=== PATIENT | female | born 1950 | race Caucasian/White ===

== ENCOUNTER 2023-08-15 09:47 | Inpatient (IN) | payer MEDICARE ==
[~2023-08-15] VITALS: Ht 177.8 cm; Wt 63.6 kg
[2023-08-15] MEDS ORDERED: NS 1,000 ML IV SCH ×2 (10:10→15:30)
[2023-08-15 11:15] LABS: Albumin, Blood 3.1 g/dL (3.4-5.0); Albumin/Globulin Ratio 0.7 (0.8-1.8); Bilirubin, Total 0.5 mg/dL (0.1-1.0); Bun/Creatinine Ratio 15.5 (12.0-20.0); Calcium, Blood 9.2 mg/dL (8.5-10.1); Creatinine, Blood 2.2 mg/dL (0.40-1.00); Globulin, Blood 4.5 g/dL (2.2-4.0); Potassium, Blood 3.3 mmol/L (3.5-5.5); Total Protein, Blood 7.6 g/dL (6.4-8.2)
[2023-08-15 13:19] LABS: BASOPHILS ABSOLUTE AUTO 0.05 K/mm3 (0.00-0.23); BASOPHILS PERCENT AUTO 1 % (0-2); EOSINOPHILS ABSOLUTE AUTO 0.11 K/mm3 (0.00-0.68); EOSINOPHILS PERCENT AUTO 1 % (0-6); Hematocrit 33.7 % (33.0-51.0); Hemoglobin 10.7 g/dL (11.5-16.0); IMMATURE GRAN ABSOLUTE AUTO 0.04 K/mm3 (0.00-0.10); IMMATURE GRAN PERCENT AUTO 0 % (0-1); LYMPHOCYTES ABSOLUTE AUTO 2.05 K/mm3 (0.84-5.20); LYMPHOCYTES PERCENT AUTO 22 % (21-46); MONOCYTES PERCENT AUTO 8 % (4-13); Mean Corpuscular HGB 28.2 pg (26.0-34.0); Mean Corpuscular HGB Conc 31.8 g/dL (31.5-36.5); Mean Corpuscular Volume 89 fL (80-100); Mean Platelet Volume 9.3 fL (9.1-12.4); NEUTROPHILS ABSOLUTE AUTO 6.19 K/mm3 (1.96-9.15); NEUTROPHILS PERCENT AUTO 68 % (41-73); Platelet Count 223 K/mm3 (150-400); RDW Standard Deviation 55.6 fL (35.1-46.3); White Blood Cell Count 9.14 K/mm3 (4.00-11.30)
[2023-08-15] MEDS ORDERED: Atropine Sulfate 0.4 MG/ML 20ML VIAL IV ONE (15:25)
[2023-08-15] MEDS ORDERED: Ondansetron HCl 2 MG / ML 2ML Vial IV PRN (15:40)
[2023-08-15] MEDS ORDERED: FLU VACC QS2023-24(6MOS UP)/PF 60 MCG/0.5 ML SYRINGE IM SCH (15:40)
[2023-08-15] MEDS ORDERED: Potassium Chloride 20 MEQ TabCR PO ONE (15:40)
[2023-08-15] MEDS ORDERED: Acetaminophen 325 MG TABLET PO PRN (15:40)
[2023-08-15] MEDS ORDERED: Lactated Ringer's 1,000 ML IV SCH (15:45)
[2023-08-15] MEDS ORDERED: Insulin Regular 100 UNIT/ML 10ML Vial SC SCH (16:30)
[2023-08-15 17:24] LABS: Influenza A, PCR NEGATIVE (NEGATIVE); Influenza B, PCR NEGATIVE (NEGATIVE); Resp Syncytial Virus, PCR NEGATIVE (NEGATIVE); SARS-Cov-2 (COVID-19) PCR, MMC NEGATIVE (NEGATIVE)
[2023-08-15 18:05] LABS: Campylobacter Sp Not Detected (NOT DETECT)
[2023-08-15 18:06] LABS: Adenovirus F 40/41 Not Detected (NOT DETECT); Astrovirus Not Detected (NOT DETECT); Cryptosporidium Not Detected (NOT DETECT); Cyclospora Cayetanensis Not Detected (NOT DETECT); E. Coli O157 Not Detected (NOT DETECT); Entamoeba Histolytica Not Detected (NOT DETECT); Enteroaggregative E. coli-EAEC Not Detected (NOT DETECT); Enteropathogenic E. coli-EPEC Not Detected (NOT DETECT); Enterotoxigenic E. coli-ETEC Not Detected (NOT DETECT); Giardia Lamblia Not Detected (NOT DETECT); Norovirus GI/GII Not Detected (NOT DETECT); Plesiomonas Shigelloides Not Detected (NOT DETECT); Rotavirus A Not Detected (NOT DETECT); Salmonella Sp Not Detected (NOT DETECT); Sapovirus Not Detected (NOT DETECT); Shiga Toxin-prod E. coli-STEC Not Detected (NOT DETECT); Shigella/Enteroin E. coli-EIEC Not Detected (NOT DETECT); Vibrio Cholerae Not Detected (NOT DETECT); Vibrio Sp Not Detected (NOT DETECT); Yersinia Enterocolitica Not Detected (NOT DETECT)
[2023-08-15 18:54] VITALS: BP 105/72
[2023-08-15] MEDS ORDERED: Lactobacil 2-S.Thermo-Bifido 1 1 Cap PO SCH (21:00)
[2023-08-16 04:44] VITALS: BP 112/66
[2023-08-16 06:00] LABS: BASOPHILS ABSOLUTE AUTO 0.04 K/mm3 (0.00-0.23); BASOPHILS PERCENT AUTO 1 % (0-2); EOSINOPHILS ABSOLUTE AUTO 0.23 K/mm3 (0.00-0.68); EOSINOPHILS PERCENT AUTO 3 % (0-6); Hematocrit 30.3 % (33.0-51.0); Hemoglobin 9.7 g/dL (11.5-16.0); IMMATURE GRAN ABSOLUTE AUTO 0.04 K/mm3 (0.00-0.10); IMMATURE GRAN PERCENT AUTO 1 % (0-1); LYMPHOCYTES ABSOLUTE AUTO 1.75 K/mm3 (0.84-5.20); LYMPHOCYTES PERCENT AUTO 23 % (21-46); MONOCYTES ABSOLUTE AUTO 0.76 K/mm3 (0.16-1.47); MONOCYTES PERCENT AUTO 10 % (4-13); Mean Corpuscular HGB 28.2 pg (26.0-34.0); Mean Corpuscular Volume 88 fL (80-100); NEUTROPHILS ABSOLUTE AUTO 4.84 K/mm3 (1.96-9.15); NEUTROPHILS PERCENT AUTO 63 % (41-73); Platelet Count 206 K/mm3 (150-400); RDW Coefficient Variation 16.7 % (11.7-14.2); Red Blood Cell Count 3.44 M/mm3 (3.80-5.20); White Blood Cell Count 7.66 K/mm3 (4.00-11.30)
[2023-08-16 07:07] LABS: Bun/Creatinine Ratio 15.3 (12.0-20.0); Calcium, Blood 8.9 mg/dL (8.5-10.1); Creatinine, Blood 1.83 mg/dL (0.40-1.00); Potassium, Blood 2.9 mmol/L (3.5-5.5)
[2023-08-16 07:22] VITALS: BP 101/64
[2023-08-16] MEDS ORDERED: Potassium Chloride 20 MEQ TabCR PO ONE (08:00)
--- NOTE | 2023-08-16 08:16 | NUR ---
SHIFT SUMMARY PT IS A&OX4, VSS ON RA. DENIES PAIN. PT TOLERATING A REGULAR DIET, POOR APPETITE. PT STATES SHE DOESN'T MONITOR HER BG AT HOME, OR TAKE ANY MEDICATIONS FOR IT. UP INDEPENDENTLY IN ROOM/BR. VOIDING IN BR, OCCASIONALLY INCONTINENT OF STOOL, PULL-UP IN PLACE. BED IN LOWEST POSITION, CALL LIGHT WITHIN REACH. ENTERIC PRECAUTIONS MAINTAINED FOR POSITIVE C-DIFF.
[2023-08-16] MEDS ORDERED: Heparin Sodium,Porcine 5,000 UNIT/0.5 ML SDV SC SCH (09:00)
[2023-08-16] MEDS ORDERED: Vancomycin HCl 125 MG Cap PO SCH (12:00)
[2023-08-16 16:04] VITALS: BP 143/71
--- NOTE | 2023-08-16 19:33 | NUR ---
PT IS A/OX4, PLEASANT AND COOPERATIVE. PT IS UP IND IN HER ROOM. PT DENIED ANY PAIN,SOB, N/V T/O THE DAY. PT APPEARS TO BE BREATHING EASILY AT REST. CALL LIGHT IN REACH REPORT GIVEN TO DIE DRAWING CHECKER RN
[2023-08-16 19:52] VITALS: BP 122/65
[2023-08-17 03:44] VITALS: BP 151/73
--- NOTE | 2023-08-17 05:36 | NUR ---
SHIFT SUMMARY: PT IS ADMITTED FOR ACUTE KIDNEY INJURY AND IS A FULL CODE. IS ALERT AND ABLE TO MAKE NEEDS KNOWN. INDEPENDENT FOR ADLs. ON ISO FOR C-DIFF. IV TO LEFT AC IS PATENT WITH DRESSING THAT IS CDI. LR RUNNING AT 100ML/H. DENIES PAIN OR DISCOMFORT WHEN ASKED.
[2023-08-17 06:02] LABS: BASOPHILS ABSOLUTE AUTO 0.04 K/mm3 (0.00-0.23); BASOPHILS PERCENT AUTO 1 % (0-2); EOSINOPHILS ABSOLUTE AUTO 0.13 K/mm3 (0.00-0.68); EOSINOPHILS PERCENT AUTO 2 % (0-6); Hematocrit 28.6 % (33.0-51.0); Hemoglobin 9.3 g/dL (11.5-16.0); IMMATURE GRAN ABSOLUTE AUTO 0.03 K/mm3 (0.00-0.10); IMMATURE GRAN PERCENT AUTO 1 % (0-1); LYMPHOCYTES ABSOLUTE AUTO 2.06 K/mm3 (0.84-5.20); LYMPHOCYTES PERCENT AUTO 34 % (21-46); MONOCYTES PERCENT AUTO 13 % (4-13); Mean Corpuscular HGB 28.3 pg (26.0-34.0); Mean Corpuscular HGB Conc 32.5 g/dL (31.5-36.5); Mean Corpuscular Volume 87 fL (80-100); Mean Platelet Volume 9.4 fL (9.1-12.4); NEUTROPHILS ABSOLUTE AUTO 3.02 K/mm3 (1.96-9.15); NEUTROPHILS PERCENT AUTO 50 % (41-73); Platelet Count 204 K/mm3 (150-400); RDW Coefficient Variation 16.6 % (11.7-14.2); RDW Standard Deviation 53.1 fL (35.1-46.3); Red Blood Cell Count 3.29 M/mm3 (3.80-5.20); White Blood Cell Count 6.08 K/mm3 (4.00-11.30)
[2023-08-17 06:21] LABS: Bun/Creatinine Ratio 13.9 (12.0-20.0); Calcium, Blood 8.8 mg/dL (8.5-10.1); Creatinine, Blood 1.8 mg/dL (0.40-1.00); Potassium, Blood 3.4 mmol/L (3.5-5.5)
[2023-08-17] MEDS ORDERED: Potassium Chloride 20 MEQ TabCR PO ONE (07:25)
[2023-08-17 07:38] VITALS: BP 133/79
[2023-08-17] MEDS ORDERED: Phenyleph/Mineral Oil/Petrolat 1 APPLIC/57 GM Tube PR PRN (08:00)
[2023-08-17 15:56] VITALS: BP 146/71
--- NOTE | 2023-08-17 16:33 | NUR ---
SHIFT SUMMARY: PT IS A 72 YEAR OLD FEMALE HERE FOR AN HARSHA/C-DIFF. SHE CONTINUES TO HAVE DIARRHEA AND STATES THAT IT HASN'T IMPROVED. SHE HAS BEEN INDEPENDENT IN THE ROOM, CALLING APPROPRIATELY FOR NEEDS. SHE COMPLAINS OF HER BOTTOM BEING SORE FROM THE DIARRHEA AND SOME BLEEDING, BUT WHEN ASSESSED NOT ACTIVELY BLEEDING/SATURATION, JUST SPOTTING IN PULL-UP AND ON TOILET PAPER. SHE IS IN BED, PLAYING ON HER CELL PHONE, NO SIGNS OR SYMPTOMS OF DISTRESS. AWAITING RECORDS THAT WERE REQUESTED FROM [facility] FOR POSSIBLE PRESCRIPTION RECORDS/INDICATIONS. PATIENT STATES THAT SHE USED TO TAKE ELIQUIS, UNSURE FOR WHAT, BUT DUE TO HOMELESSNESS AND EXSPENSE OF MEDICATIONS SHE HASN'T FILLED MEDICATIONS IN MONTHS. [facility]AGO WAS CALLED TODAY AND REPORTED NO MEDICATIONS ON FILE FOR PATIENT. PLAN OF CARE ONGOING.
[2023-08-17 20:37] VITALS: BP 138/71
[2023-08-18 04:06] VITALS: BP 131/72
[2023-08-18 05:39] LABS: Hematocrit 31.1 % (33.0-51.0)
[2023-08-18 06:21] LABS: Calcium, Blood 9.1 mg/dL (8.5-10.1); Creatinine, Blood 1.83 mg/dL (0.40-1.00); Potassium, Blood 3.6 mmol/L (3.5-5.5)
--- NOTE | 2023-08-18 06:41 | NUR ---
SHIFT SUMMARY: PT IS ADMITTED FOR SYNCOPAL EPISODES AND IS A FULL CODE. IS ALERT AND ABLE TO MAKE NEEDS KNOWN. ADLS HAVE BEEN STANDBY DURING SHIFT BUT DID NOT GET OUT OF BED. STATED HIS PAIN WAS MANAGEABLE AND DECLINED ANY PRN DURING SHIFT. IV TO LEFT AC IS PATENT WITH DRESSING THAT IS CDI. ADOLPH REPORTS SINUS AT 83.
--- NOTE | 2023-08-18 06:41 | NUR ---
SHIFT SUMMARY: PT IS ADMITTED FOR ACUTE KIDNEY INJURY AND IS A FULL CODE. ALERT AND ABLE TO MAKE NEEDS KNOWN. ADLs HAVE BEEN INDEPENDANT THROUGH SHIFT. DENIES PAIN OR DISCOMFORT WHEN ASKED. ON ISO FOR C-DIFF. IV TO LEFT AC IS PATENT WITH DRESSING THAT IS CDI.
[2023-08-18 07:35] VITALS: BP 134/76
[2023-08-18] MEDS ORDERED: Vancomycin HCl 250 MG Cap PO SCH (12:00)
[2023-08-18] MEDS ORDERED: Cholecalciferol 1000 Unit Tablet (=25MCG) PO SCH (12:00)
--- NOTE | 2023-08-18 12:27 | NUR ---
TIME OF : PATIENT PASSED WITH BOTH DAUGHTERS AT BEDSIDE AT 1219. 2 RN VERIFIED. MD NOTIFIED. PATIENT APPEARED COMFORTABLE DURING PASSING. FAMILY HAS DECIDED WITH [facility] HOME. FAMILY STILL IN ROOM WITH PATIENT AT THIS TIME AWAITING FOR THEM TO NOTIFY WHEN THEY ARE READY FOR THE PATIENT TO BE PICKED UP FROM HOME. ACCOUNTING PROFESSIONAL COORDINATING AT THIS TIME. CHAPLEN AND PALLATIVE CARE TO COME VISIT WAS REFUSED.
--- NOTE | 2023-08-18 17:11 | NUR ---
SHIFT SUMMARY: NO EVENTS WITH THE PATIENT THROUGHOUT THE SHIFT. SHE REPORTS 3-4 LOOSE BOWEL MOVEMENTS TODAY. SHE ALSO REPORTS THAT SHE FEELS IF SHE IS COMING DOWN WITH A COLD DUE TO NOT FEELING WELL AND HAVING SINUS CONGESTION. MD NOTIFIED DURING ROUNDING. SHE IS PLEASANT AND COOPERATIVE WITH CARE AND INDEPENDENT IN THE ROOM. ORAL INTAKE OF FLUIDS ENCOURAGED AND HOPE THAT PATIENT'S LOOSE STOOLS IMPROVE. PLAN OF CARE ONGOING.
[2023-08-18 17:15] VITALS: BP 141/83
[2023-08-18 20:33] VITALS: BP 144/81
[2023-08-19 03:37] VITALS: BP 145/70
--- NOTE | 2023-08-19 03:58 | NUR ---
SHIFT ASSESSMENT ALEXIS WAS ALERT, FULLY ORIENTED, AND INDEPENDENT IN THE ROOM ON ASSESSMENT. PT COMPLAINING OF C-DIFF ASSOCIATED DIARRHEA AND A HEADACHE. NO CHANGES TO PT CONDITION, NO ACUTE EVENTS TONIGHT. PT SLEEPING IN BED AT A LOW POSITION WITH CALL LIGHT IN REACH.
[2023-08-19 05:48] LABS: Albumin, Blood 2.6 g/dL (3.4-5.0); Anion Gap 3 mmol/L (6-16); Blood Urea Nitrogen 20 mg/dL (8-24); Bun/Creatinine Ratio 10.2 (12.0-20.0); CO2, Blood 25 mmol/L (21-32); Calcium, Blood 9.2 mg/dL (8.5-10.1); Chloride, Blood 110 mmol/L (98-108); Creatinine, Blood 1.97 mg/dL (0.40-1.00); Glomerular Filtration Rate 27 (60-); Glucose, Blood 141 mg/dL (70-99); Phosphorus, Blood 3.8 mg/dL (2.5-4.9); Potassium, Blood 3.8 mmol/L (3.5-5.5); Sodium, Blood 138 mmol/L (136-145)
[2023-08-19 07:36] VITALS: BP 135/71
[2023-08-19] MEDS ORDERED: Saline Nasal Spray 45 ML PRN (09:35)
[2023-08-19] MEDS ORDERED: Pseudoephedrine HCl 30 MG Tab PO PRN (09:35)
[2023-08-19 16:11] VITALS: BP 120/81
--- NOTE | 2023-08-19 16:21 | NUR ---
SHIFT SUMMARY: NO EVENTS OR CHANGES WITH THE PATIENT THROUGHOUT THE SHIFT. SHE DOES CONTINUE TO HAVE LOOSE STOOLS. SHE ISN'T FEELING WELL. OF YESTERDAY SHE STARTED FEELING CONGESTED. THIS MORNING SHE WAS MORE CONGESTED, SOUNDED WORSE, AND HAS A HEADACHE. DR. VALERA NOTIFIED AND MEDS ADDED TO EMAR FOR SYMPTOMS. HER KIDNEY FUNCTION ISN'T IMPROVED AT THIS TIME, CONTINUING TO ENCOURAGE ORAL FLUID INTAKE. SHE IS A&OX4, INDEPENDENT, AND MAKES NEEDS KNOWN. PLAN OF CARE ONGOING.
[2023-08-19 20:32] VITALS: BP 127/74
[2023-08-19] MEDS ORDERED: GuaiFENesin 600 MG TabCR PO SCH (21:00)
[2023-08-19] MEDS ORDERED: Apixaban 5 MG Tab PO SCH (21:00)
--- NOTE | 2023-08-20 04:00 | NUR ---
SHIFT ASSESSMENT ALEXIS WAS ALERT, FULLY ORIENTED, AND INDEPENDENT IN THE ROOM ON ASSESSMENT. PT COMPLAINING OF C-DIFF ASSOCIATED DIARRHEA AND A HEADACHE STILL, PT REPORTS THAT HER STOOLS ARE NO LONGER LIQUID, AND ARE MORE OF A SOFT BLOBBY CONSISTENCY. NO CHANGES TO PT CONDITION, NO ACUTE EVENTS TONIGHT, NO NEW COMPLAINTS. PT SLEEPING IN BED AT A LOW POSITION WITH CALL LIGHT IN REACH.
[2023-08-20 04:20] VITALS: BP 103/62
[2023-08-20 08:00] VITALS: BP 113/72
[2023-08-20] MEDS ORDERED: Phenylephrine 0.5% Nasal Spray/Drops 15 ML PRN (10:00)
[2023-08-20 15:28] VITALS: BP 116/67
--- NOTE | 2023-08-20 15:55 | NUR ---
SHIFT SUMMARY; PATIENT INDEPENDANT IN ROOM. NOTED TO BE SPEAKING WITH FAMILY OR FRIENDS ON PHONE TODAY. MAKING PLANS FOR HER EVENTUAL DISCHARGE. HER VITAL SIGNS ARE STABLE AND PATIENT HAS HAD PARTIALLY FORMED STOOLS NOTED TODAY. SHE DENIES ANY PAIN OR DISCOMFORT. VITAL SIGNS ARE WNL. NO ACUTE CHANGES IN CONDITION NOTED DURING DAY SHIFT BY THIS RN. WILL REMAIN AVAILABLE FOR THIS PATIENT UNTIL REPORT AND SHIFT CHANGE AT [facility]
[2023-08-20 19:37] VITALS: BP 110/61
[2023-08-21 03:52] VITALS: BP 114/74
--- NOTE | 2023-08-21 04:18 | NUR ---
SHIFT ASSESSMENT ALEXIS WAS ALERT, FULLY ORIENTED, AND INDEPENDENT IN THE ROOM ON ASSESSMENT. PT REPORTS THAT HER STOOLS ARE NO LONGER LIQUID, AND CONTINUE TO BECOME MORE FORMED NO CHANGES TO PT CONDITION, NO ACUTE EVENTS TONIGHT, NO NEW COMPLAINTS. PT SLEEPING IN BED AT A LOW POSITION WITH CALL LIGHT IN REACH. PLAN TO DX BACK TO [facility] W/ RESOLUTION OF DIARRHEA.
[2023-08-21 06:38] LABS: Hematocrit 34.6 % (33.0-51.0); Hemoglobin 11.1 g/dL (11.5-16.0); Mean Corpuscular HGB 28.2 pg (26.0-34.0); Mean Corpuscular HGB Conc 32.1 g/dL (31.5-36.5); Mean Corpuscular Volume 88 fL (80-100); Mean Platelet Volume 8.8 fL (9.1-12.4); Platelet Count 224 K/mm3 (150-400); RDW Standard Deviation 54.5 fL (35.1-46.3); Red Blood Cell Count 3.94 M/mm3 (3.80-5.20); White Blood Cell Count 7.85 K/mm3 (4.00-11.30)
[2023-08-21 07:02] LABS: Albumin, Blood 2.9 g/dL (3.4-5.0); Anion Gap 4 mmol/L (6-16); Blood Urea Nitrogen 28 mg/dL (8-24); Bun/Creatinine Ratio 14.5 (12.0-20.0); CO2, Blood 25 mmol/L (21-32); Calcium, Blood 9.6 mg/dL (8.5-10.1); Chloride, Blood 110 mmol/L (98-108); Creatinine, Blood 1.93 mg/dL (0.40-1.00); Glomerular Filtration Rate 27 (60-); Glucose, Blood 142 mg/dL (70-99); Phosphorus, Blood 4.2 mg/dL (2.5-4.9); Potassium, Blood 4.3 mmol/L (3.5-5.5); Sodium, Blood 139 mmol/L (136-145)
[2023-08-21 08:10] VITALS: BP 147/75
[2023-08-21 16:22] VITALS: BP 120/76
--- NOTE | 2023-08-21 17:20 | NUR ---
SHIFT SUMMARY A&OX4, COOPERATIVE, INDEPENDENT IN ROOM. NO ACUTE EVENTS THIS SHIFT. PATIENT HAD 2 BOWEL MOVEMENTS - BOTH WERE SOLID AND FORMED. DENIED PAIN/CP THIS SHIFT. DENIED HEADACHE, SOB, OR DIZZINESS. APPETITE AND HYDRATION GOOD. CBG LEVELS WNL T/O SHIFT. PATIENT IS CURRENTLY RESTING IN BED. BED IN THE LOWEST POSITION. CALL LIGHT WITHIN REACH.
[2023-08-21 21:15] VITALS: BP 114/77
--- NOTE | 2023-08-22 04:02 | NUR ---
SHIFT SUMMARY PATIENT SLEPT WELL, VITALS SIGNS STABLE, UP TO BR INDEPENDENTLY. REPORTS 1 SOFT FORMED BM THIS SHIFT. REMAINS IN C DIF PRECAUTIONS. SL PATENT
[2023-08-22 05:52] VITALS: BP 125/72
[2023-08-22 07:55] VITALS: BP 131/75
[2023-08-22 16:48] VITALS: BP 128/67
[2023-08-22 19:32] VITALS: BP 111/65
--- NOTE | 2023-08-22 19:41 | NUR ---
SHIFT SUMMARY: PT A/O X 4 IND TO BATHROOM, PLEASANT AND COOPERATIVE WITH CARE. PT HAD ONE VISUALIZED FORMED MED, SOFT BROWN STOOL TODAY. PT HAD NO COMPLAINTS OF GI UPSET. EATING WELL. PT HAD C/O OF HEADACHE AND RESOLVED WITH TYLENOL. NO OTHER CONCERNS OR COMPLAINTS THROUGHOUT THE DAY.
[2023-08-23 05:14] VITALS: BP 122/73
--- NOTE | 2023-08-23 06:38 | NUR ---
SHIFT SUMMARY PT REPORTS NO BM OVER NIGHT. INDEPENDENT AMBULATION TO BATHROOM TO URINATE X3. REPORTS HEADACHE AND NECK PAIN, TYLENOL GIVEN WITH LITTLE TO NO RELIEF. PT ABLE TO MAKE NEEDS KNOWN. OTHERWISE NO EVENTS OVERNIGHT. CALL LIGHT IN REACH. BED LOCKED IN LOW POSITION. PT REFUSED NONSKID SOCKS.
[2023-08-23 07:31] VITALS: BP 115/72
[2023-08-23] MEDS ORDERED: VANCOCIN HCL250 MG PO (12:47)
[2023-08-23] MEDS ORDERED: ELIQUIS2.5 MG PO (12:47)
[2023-08-23] MEDS ORDERED: VISBIOME 112.51 EACH PO (12:48)
--- NOTE | 2023-08-23 13:57 | NUR ---
DISCHARGE NOTE: PATIENT WAS EDUCATED ON DISCHARGE INSTRUCTIONS. AFTER EDUCATION WAS GIVEN PATIENT HAD NO FURTHER QUESTIONS AT THIS TIME. IV WAS TAKEN OUT AND WNL. PATIENTS NEW PERSCRIPTIONS WERE FAXED TO [facility] PER PATIENT REQUEST. PATIENT IS TOLERATING PO INTAKE AND IS VOIDING WELL HAVING FORMED BM'S. PATIENT IS INDEP. IN HER ROOM. SHE IS DRESSED AND HAS PERSONAL ITEMS IN THE ROOM GATHERED. PATIENT IS BEING WHEELCHAIRED DOWN TO THE WAITING AREA TO BE TAKEN BY TAXI TO HER HOME. PATIENT HAS ALL OF HER PERSONAL BELONGINGS WITH HER.
== END 2023-08-23 14:01 | disposition home or self-care (01) | DRG 372 ==
LOC: ER 09:47 → MEDS 09:48 → ENPENDDIS 08-23 11:56 → MEDS 08-23 14:01
PROVIDERS: Emergency Medicine; Internal Medicine; Physician Assistant; ADMIT Family Medicine
DX: A04.72 Enterocolitis due to Clostridium difficile, not specified as recurrent (principal); N17.9 Acute kidney failure, unspecified; N18.4 Chronic kidney disease, stage 4 (severe); Z59.01 Sheltered homelessness; E11.22 Type 2 diabetes mellitus with diabetic chronic kidney disease; Z90.710 Acquired absence of both cervix and uterus; D63.1 Anemia in chronic kidney disease; E87.6 Hypokalemia; Z11.52 Encounter for screening for COVID-19
CPT/HCPCS: 0241U; 36415; 76770; 80048; 80053; 80069; 82947; 85014; 85018; 85025; 85027; 87324; 87507; 96361; 96372; 96374; 99284-25; A9270; G0378; J1644; J1815; J7030; J7120

== ENCOUNTER 2023-10-26 18:06 | Emergency (ER) | payer MEDICARE ==
[~2023-10-26] VITALS: Ht 165.1 cm; Wt 72.6 kg
[~2023-10-26 18:06] MED LIST: ELIQUIS2.5 MG PO; VANCOCIN HCL250 MG PO; VISBIOME 112.51 EACH PO
== END 2023-10-26 20:41 | disposition home or self-care (01) ==
LOC: ER 18:06
DX: R22.42 Localized swelling, mass and lump, left lower limb (principal); Z79.899 Other long term (current) drug therapy; E11.9 Type 2 diabetes mellitus without complications
CPT/HCPCS: 93971; 99283-25

== ENCOUNTER 2024-02-13 19:54 | Emergency (ER) | payer MEDICARE ==
[~2024-02-13] VITALS: Ht 177.8 cm; Wt 72.6 kg
[~2024-02-13 19:54] MED LIST changes: +TRAM50 PO
[2024-02-13] MEDS ORDERED: Acetaminophen 325 MG TABLET PO ONE (20:40)
[2024-02-13 21:02] LABS: BASOPHILS ABSOLUTE AUTO 0.02 K/mm3 (0.00-0.23); BASOPHILS PERCENT AUTO 0 % (0-2); EOSINOPHILS ABSOLUTE AUTO 0.05 K/mm3 (0.00-0.68); EOSINOPHILS PERCENT AUTO 1 % (0-6); Hematocrit 39.5 % (33.0-51.0); Hemoglobin 12.8 g/dL (11.5-16.0); IMMATURE GRAN ABSOLUTE AUTO 0.03 K/mm3 (0.00-0.10); IMMATURE GRAN PERCENT AUTO 0 % (0-1); LYMPHOCYTES ABSOLUTE AUTO 0.44 K/mm3 (0.84-5.20); LYMPHOCYTES PERCENT AUTO 4 % (21-46); MONOCYTES ABSOLUTE AUTO 0.53 K/mm3 (0.16-1.47); MONOCYTES PERCENT AUTO 5 % (4-13); Mean Corpuscular HGB 28.4 pg (26.0-34.0); Mean Corpuscular HGB Conc 32.4 g/dL (31.5-36.5); Mean Corpuscular Volume 88 fL (80-100); Mean Platelet Volume 9.2 fL (9.1-12.4); NEUTROPHILS ABSOLUTE AUTO 9.07 K/mm3 (1.96-9.15); NEUTROPHILS PERCENT AUTO 90 % (41-73); Platelet Count 186 K/mm3 (150-400); RDW Coefficient Variation 13.9 % (11.7-14.2); RDW Standard Deviation 44.7 fL (35.1-46.3); Red Blood Cell Count 4.51 M/mm3 (3.80-5.20); White Blood Cell Count 10.14 K/mm3 (4.00-11.30)
[2024-02-13 21:23] LABS: Albumin, Blood 3.6 g/dL (3.4-5.0); Albumin/Globulin Ratio 0.9 (0.8-1.8); Bilirubin, Total 0.4 mg/dL (0.1-1.0); Bun/Creatinine Ratio 29.5 (12.0-20.0); Calcium, Blood 8.7 mg/dL (8.5-10.1); Creatinine, Blood 1.9 mg/dL (0.40-1.00); Globulin, Blood 4.2 g/dL (2.2-4.0); Potassium, Blood 4.2 mmol/L (3.5-5.5); Total Protein, Blood 7.8 g/dL (6.4-8.2)
[2024-02-13 21:40] LABS: Influenza A, PCR NEGATIVE (NEGATIVE); Influenza B, PCR NEGATIVE (NEGATIVE); Resp Syncytial Virus, PCR NEGATIVE (NEGATIVE); SARS-Cov-2 (COVID-19) PCR, MMC NEGATIVE (NEGATIVE)
[2024-02-13] MEDS ORDERED: RX Prepack 2 Tabs Ondansetron ODT 4MG UD ONE (23:05)
== END 2024-02-13 23:37 | disposition home or self-care (01) ==
LOC: ER 19:54
PROVIDERS: Student in an Organized Health Care Education/Training Program
DX: R50.9 Fever, unspecified (principal); E11.22 Type 2 diabetes mellitus with diabetic chronic kidney disease; N18.4 Chronic kidney disease, stage 4 (severe)
CPT/HCPCS: 0241U; 80053; 85025; 99284-25; A9270

== ENCOUNTER 2024-10-13 11:50 | Emergency (ER) | payer MEDICARE ==
[~2024-10-13] VITALS: Ht 167.6 cm; Wt 72.6 kg
[2024-10-13] MEDS ORDERED: MUPIROCIN2210 TOP (12:23)
== END 2024-10-13 13:33 | disposition home or self-care (01) ==
LOC: ER 11:50
DX: R11.2 Nausea with vomiting, unspecified (principal); T36.4X5A Adverse effect of tetracyclines, initial encounter; T36.1X5A Adverse effect of cephalosporins and other beta-lactam antibiotics, initial encounter; E11.9 Type 2 diabetes mellitus without complications; Z59.89 Other problems related to housing and economic circumstances
CPT/HCPCS: 99283

== ENCOUNTER 2024-10-16 20:17 | Emergency (ER) | payer MEDICARE ==
[~2024-10-16] VITALS: Ht 177.8 cm; Wt 72.6 kg
[~2024-10-16 20:17] MED LIST changes: +MUPIROCIN2210 TOP
[2024-10-16] MEDS ORDERED: NS 1,000 ML IV SCH (20:45)
[2024-10-16 21:13] LABS: BASOPHILS ABSOLUTE AUTO 0.03 K/mm3 (0.00-0.23); BASOPHILS PERCENT AUTO 0 % (0-2); EOSINOPHILS ABSOLUTE AUTO 0.12 K/mm3 (0.00-0.68); EOSINOPHILS PERCENT AUTO 1 % (0-6); Hematocrit 36.5 % (33.0-51.0); Hemoglobin 12.3 g/dL (11.5-16.0); IMMATURE GRAN ABSOLUTE AUTO 0.04 K/mm3 (0.00-0.10); IMMATURE GRAN PERCENT AUTO 0 % (0-1); LYMPHOCYTES ABSOLUTE AUTO 3.13 K/mm3 (0.84-5.20); LYMPHOCYTES PERCENT AUTO 23 % (21-46); MONOCYTES ABSOLUTE AUTO 0.92 K/mm3 (0.16-1.47); MONOCYTES PERCENT AUTO 7 % (4-13); Mean Corpuscular HGB 29.1 pg (26.0-34.0); Mean Corpuscular HGB Conc 33.7 g/dL (31.5-36.5); Mean Corpuscular Volume 86 fL (80-100); NEUTROPHILS ABSOLUTE AUTO 9.13 K/mm3 (1.96-9.15); NEUTROPHILS PERCENT AUTO 68 % (41-73); Platelet Count 274 K/mm3 (150-400); RDW Coefficient Variation 13.3 % (11.7-14.2); Red Blood Cell Count 4.23 M/mm3 (3.80-5.20); White Blood Cell Count 13.37 K/mm3 (4.00-11.30)
[2024-10-16 21:28] LABS: International Normalized Ratio 0.95; Prothrombin Time Results 10.2 Sec (9.7-11.5)
[2024-10-16 21:36] LABS: Albumin, Blood 3.4 g/dL (3.4-5.0); Albumin/Globulin Ratio 0.8 (0.8-1.8); Bilirubin, Total 0.3 mg/dL (0.1-1.0); Bun/Creatinine Ratio 22.1 (12.0-20.0); Calcium, Blood 9.2 mg/dL (8.5-10.1); Creatinine, Blood 3.08 mg/dL (0.40-1.00); Globulin, Blood 4.2 g/dL (2.2-4.0); Potassium, Blood 4.3 mmol/L (3.5-5.5); Total Protein, Blood 7.6 g/dL (6.4-8.2)
[2024-10-17] MEDS ORDERED: Mag Hydrox/AL Hydrox/Simeth 30 ML UDC PO ONE (00:45)
[2024-10-17] MEDS ORDERED: Lidocaine 2% Viscous Soln 15 ML UDC PO ONE (00:45)
[2024-10-17] MEDS ORDERED: Ondansetron 4 MG TAB PO ONE (00:45)
[2024-10-17] MEDS ORDERED: ONDA4 PO (04:40)
== END 2024-10-17 04:24 | disposition home or self-care (01) ==
LOC: ER 20:17
PROVIDERS: Student in an Organized Health Care Education/Training Program
DX: R10.9 Unspecified abdominal pain (principal); R11.2 Nausea with vomiting, unspecified; E11.22 Type 2 diabetes mellitus with diabetic chronic kidney disease; N18.4 Chronic kidney disease, stage 4 (severe)
CPT/HCPCS: 74176; 80053; 83690; 85025; 85610; 85730; 99284-25; A9270; J7030

== ENCOUNTER 2024-10-19 11:27 | Emergency (ER) | payer MEDICARE ==
[~2024-10-19] VITALS: Ht 177.8 cm; Wt 63.5 kg
[~2024-10-19 11:27] MED LIST changes: +ONDA4 PO
[2024-10-19] MEDS ORDERED: Famotidine 10 MG/ML 2ML Vial IV ONE (12:00)
[2024-10-19] MEDS ORDERED: Mag Hydrox/AL Hydrox/Simeth 30 ML UDC PO ONE (12:00)
[2024-10-19] MEDS ORDERED: NS 1,000 ML IV SCH (12:05)
[2024-10-19 12:07] LABS: BASOPHILS ABSOLUTE AUTO 0.03 K/mm3 (0.00-0.23); BASOPHILS PERCENT AUTO 0 % (0-2); EOSINOPHILS PERCENT AUTO 2 % (0-6); Hematocrit 34.6 % (33.0-51.0); Hemoglobin 11.7 g/dL (11.5-16.0); IMMATURE GRAN ABSOLUTE AUTO 0.06 K/mm3 (0.00-0.10); IMMATURE GRAN PERCENT AUTO 1 % (0-1); LYMPHOCYTES ABSOLUTE AUTO 2.23 K/mm3 (0.84-5.20); LYMPHOCYTES PERCENT AUTO 18 % (21-46); MONOCYTES ABSOLUTE AUTO 0.64 K/mm3 (0.16-1.47); MONOCYTES PERCENT AUTO 5 % (4-13); Mean Corpuscular HGB 29.9 pg (26.0-34.0); Mean Corpuscular HGB Conc 33.8 g/dL (31.5-36.5); Mean Corpuscular Volume 89 fL (80-100); Mean Platelet Volume 9.1 fL (9.1-12.4); NEUTROPHILS ABSOLUTE AUTO 9.52 K/mm3 (1.96-9.15); NEUTROPHILS PERCENT AUTO 75 % (41-73); Platelet Count 241 K/mm3 (150-400); RDW Coefficient Variation 13.3 % (11.7-14.2); RDW Standard Deviation 43.1 fL (35.1-46.3); Red Blood Cell Count 3.91 M/mm3 (3.80-5.20); White Blood Cell Count 12.68 K/mm3 (4.00-11.30)
[2024-10-19 12:19] LABS: Albumin/Globulin Ratio 0.8 (0.8-1.8); Bilirubin, Total 0.4 mg/dL (0.1-1.0); Calcium, Blood 8.7 mg/dL (8.5-10.1); Creatinine, Blood 2.65 mg/dL (0.40-1.00); Globulin, Blood 3.8 g/dL (2.2-4.0); Potassium, Blood 4.1 mmol/L (3.5-5.5); Total Protein, Blood 6.8 g/dL (6.4-8.2)
[2024-10-19] MEDS ORDERED: FAMO20 PO (15:42)
[2024-10-19] MEDS ORDERED: ONDA4ODT MM (15:53)
== END 2024-10-19 16:55 | disposition home or self-care (01) ==
LOC: ER 11:27
PROVIDERS: Student in an Organized Health Care Education/Training Program
DX: K29.70 Gastritis, unspecified, without bleeding (principal); E11.22 Type 2 diabetes mellitus with diabetic chronic kidney disease; E11.65 Type 2 diabetes mellitus with hyperglycemia; N18.4 Chronic kidney disease, stage 4 (severe); E86.0 Dehydration
CPT/HCPCS: 71046; 76705; 80053; 83690; 83735; 84484; 85025; 93005; 93010; 96374; 99285-25; A9270; J7030

== ENCOUNTER 2024-11-12 21:39 | Inpatient (IN) | payer MEDICARE ==
[~2024-11-12] VITALS: Ht 180.3 cm; Wt 68.7 kg
[~2024-11-12 21:39] MED LIST changes: +FAMO20 PO; +ONDA4ODT MM
[2024-11-12] MEDS ORDERED: Diphth,Pertuss(Acell),Tet Vac 0.5 ML VIAL IM ONE (22:25)
[2024-11-12] MEDS ORDERED: Trimethoprim/Sulfamethoxazole DS Tab PO ONE (22:25)
[2024-11-12] MEDS ORDERED: Cephalexin Monohydrate 500 MG Cap PO ONE (22:25)
[2024-11-12 23:08] LABS: BASOPHILS ABSOLUTE AUTO 0.04 K/mm3 (0.00-0.23); BASOPHILS PERCENT AUTO 0 % (0-2); EOSINOPHILS ABSOLUTE AUTO 0.05 K/mm3 (0.00-0.68); EOSINOPHILS PERCENT AUTO 0 % (0-6); Hematocrit 26.2 % (33.0-51.0); Hemoglobin 8.6 g/dL (11.5-16.0); IMMATURE GRAN ABSOLUTE AUTO 0.07 K/mm3 (0.00-0.10); IMMATURE GRAN PERCENT AUTO 1 % (0-1); LYMPHOCYTES ABSOLUTE AUTO 2.75 K/mm3 (0.84-5.20); LYMPHOCYTES PERCENT AUTO 19 % (21-46); MONOCYTES PERCENT AUTO 9 % (4-13); Mean Corpuscular HGB Conc 32.8 g/dL (31.5-36.5); Mean Corpuscular Volume 88 fL (80-100); NEUTROPHILS ABSOLUTE AUTO 10.48 K/mm3 (1.96-9.15); NEUTROPHILS PERCENT AUTO 71 % (41-73); Platelet Count 167 K/mm3 (150-400); RDW Coefficient Variation 13.6 % (11.7-14.2); RDW Standard Deviation 43.9 fL (35.1-46.3); Red Blood Cell Count 2.97 M/mm3 (3.80-5.20); White Blood Cell Count 14.69 K/mm3 (4.00-11.30)
[2024-11-12 23:27] LABS: Base Excess Venous -3.5 mmol/L; Bicarbonate Venous 21.8 mmol/L (24.0-30.0); pH Blood Venous 7.36 (7.34-7.37)
[2024-11-12 23:36] LABS: Albumin, Blood 2.4 g/dL (3.4-5.0); Albumin/Globulin Ratio 0.6 (0.8-1.8); Beta-hydroxybutyrate 0.7 mg/dL (0.2-2.8); Bilirubin, Total 0.3 mg/dL (0.1-1.0); Bun/Creatinine Ratio 15.1 (12.0-20.0); Calcium, Blood 8.6 mg/dL (8.5-10.1); Creatinine, Blood 2.91 mg/dL (0.40-1.00); Potassium, Blood 4.3 mmol/L (3.5-5.5); Total Protein, Blood 6.4 g/dL (6.4-8.2)
[2024-11-13 00:25] LABS: Bilirubin, Urine Neg (Neg); Blood, Urine 2+ (Neg); Glucose Qualitative, Urine 3+ (Neg); Ketones, Urine Neg (Neg); Leukocyte Esterase, Urine 3+ (Neg); Nitrite, Urine Neg (Neg); Protein, Urine 2+ (Neg); Source, Urine Clean Catch; Urobilinogen, Urine NORM (Normal)
[2024-11-13] MEDS ORDERED: NS 1,000 ML IV SCH ×3 (00:40→10:00)
[2024-11-13 00:45] LABS: Appearance, Urine Hazy (Clear); Color, Urine Yellow (P-Yellow); Red Blood Cells, Urine 0-2 /hpf (0-2); White Blood Cells, Urine 50-100 /hpf (0-5)
[2024-11-13 00:46] LABS: Bacteria Few /hpf; Squamous Epithelial Cells Few /hpf (Few)
[2024-11-13 03:03] VITALS: BP 131/60
[2024-11-13] MEDS ORDERED: ASPIR 8181 M1 PO (04:21)
[2024-11-13] MEDS ORDERED: Vancomycin HCL 1,500 MG in NS 250 ML IV ONE (05:30)
[2024-11-13] MEDS ORDERED: Piperacillin/Tazobactam Sod 2.25 GM in NS 50 ML IV SCH ×2 (06:00→12:00)
[2024-11-13 06:09] LABS: BASOPHILS ABSOLUTE AUTO 0.03 K/mm3 (0.00-0.23); BASOPHILS PERCENT AUTO 0 % (0-2); EOSINOPHILS PERCENT AUTO 1 % (0-6); Hematocrit 24.8 % (33.0-51.0); Hemoglobin 8.3 g/dL (11.5-16.0); IMMATURE GRAN ABSOLUTE AUTO 0.05 K/mm3 (0.00-0.10); IMMATURE GRAN PERCENT AUTO 0 % (0-1); LYMPHOCYTES ABSOLUTE AUTO 2.01 K/mm3 (0.84-5.20); LYMPHOCYTES PERCENT AUTO 18 % (21-46); MONOCYTES ABSOLUTE AUTO 1.05 K/mm3 (0.16-1.47); MONOCYTES PERCENT AUTO 9 % (4-13); Mean Corpuscular HGB 29.6 pg (26.0-34.0); Mean Corpuscular HGB Conc 33.5 g/dL (31.5-36.5); Mean Corpuscular Volume 89 fL (80-100); Mean Platelet Volume 9.1 fL (9.1-12.4); NEUTROPHILS ABSOLUTE AUTO 8.03 K/mm3 (1.96-9.15); NEUTROPHILS PERCENT AUTO 71 % (41-73); Platelet Count 160 K/mm3 (150-400); RDW Coefficient Variation 13.5 % (11.7-14.2); White Blood Cell Count 11.27 K/mm3 (4.00-11.30)
[2024-11-13 06:20] LABS: Albumin, Blood 2.2 g/dL (3.4-5.0); Albumin/Globulin Ratio 0.6 (0.8-1.8); Bilirubin, Total 0.3 mg/dL (0.1-1.0); Bun/Creatinine Ratio 14.8 (12.0-20.0); Calcium, Blood 8.1 mg/dL (8.5-10.1); Creatinine, Blood 2.71 mg/dL (0.40-1.00); Globulin, Blood 3.6 g/dL (2.2-4.0); Potassium, Blood 3.5 mmol/L (3.5-5.5); Total Protein, Blood 5.8 g/dL (6.4-8.2)
--- NOTE | 2024-11-13 06:57 | NUR ---
ADMIT NOTE/SHIFT SUMMARY REPORT WAS RECEIVED AT 0250 AND PT WAS BROUGHT DOWN TO ROOM 348 ON THE GURNEY.PT WAS ORIENTED TO ROOM AND STAFF. MD CAME IN TO SEE THE PT. ALL ORDERS WERE PUT IN. FLUIDS WERE STARTED FULL BODY ASSESSMENT WAS DONE AND PICTURES WERE TAKEN OF WOUNDS. SHES ALERT ORIENTED X 4 ABLE TO VERBALIZE NEEDS GETS UP TO COMMODE WITH 1 PERSON ASSIST. NO C/O PAIN TO FEET. SHE HAS A STAGE 3 TO HER LT MEDIALFOOT, HER LT BIG ENTIRE TOE IS PURPLE WITH RED STREAKS GOING UP HER LEFT LEG. I MARKED HER LEG WHERE THE REDNESS IS. SHE WAS PUT ON ISOLATION R/T HX OF CDIFF PENDING A STOOL SAMPLE. FAXED OVER TO DR. GIRON OFFICE TO INFORM THEM OF PODIATRY CONSULT. SHES RESTING IN BED AT THIS TIME WITH CALL LIGHT IN REACH
[2024-11-13] MEDS ORDERED: Insulin Regular 100 UNIT/ML 10ML Vial SC SCH (07:30)
[2024-11-13 07:38] VITALS: BP 106/53
[2024-11-13] MEDS ORDERED: LISI5 PO (14:56)
[2024-11-13] MEDS ORDERED: ROSUVASTATIN CA20 MG PO (15:04)
[2024-11-13 15:49] VITALS: BP 114/70
--- NOTE | 2024-11-13 17:36 | NUR ---
SHIFT SUMMARY PATIENT A/OX4, ABLE TO MAKE NEEDS KNOWN. PLEASANT AND COOPERATIVE WITH CARE. WOUND CARE PROVIDED PER ORDER TO LEFT FOOT AND GREAT TOE. NORMAL SALINE RUNNING PER MAR, DECREASED FROM 150ML/HR TO 100ML/HR. DIET CHANGED FROM NPO TO CONSISTENT CARB, PATIENT TOLERATING WELL. WOUND CULTURE OBTAINED THIS MORNING. PATIENT REMAINS ON CONTACT ISOLATION DUE TO HX OF CDIFF UNTIL BOWEL SAMPLE RECEIVED. PATIENT WITHOUT BOWEL MOVEMENT THIS SHIFT. DR. GIRON HAS BEEN CONSULTED. PATIENT PARTICIPATED IN OCCUPATIONAL THERAPY THIS SHIFT. NO OTHER CONCERNS AT THIS TIME.
--- NOTE | 2024-11-13 18:19 | NUR ---
MD CONTACT PATIENT COMPLAINING OF INDEGESTION, NOTIFIED AND NEW ORDER RECIEVED FOR TUMS 500MG Q4H PRN. ADMINISTERED PER AUG.
[2024-11-13] MEDS ORDERED: Calcium Carbonate 500 MG Tab Chew PO PRN (18:20)
[2024-11-13 19:37] VITALS: BP 138/59
[2024-11-13] MEDS ORDERED: Insulin Glargine-Yfgn 100 Unit/mL 3 ML SYR SC SCH (21:00)
[2024-11-13] MEDS ORDERED: Heparin Sodium,Porcine 5,000 UNIT/0.5 ML SDV SC SCH (21:00)
[2024-11-13] MEDS ORDERED: Lactobacil 2-S.Thermo-Bifido 1 1 Cap PO SCH (21:00)
[2024-11-14 04:06] VITALS: BP 118/60
--- NOTE | 2024-11-14 04:10 | NUR ---
SHIFT SUMMARY PT ALERT ORIENTED X 4 ABLE TO VERBALIZE NEEDS CALLS APPROPRIATELY BUT SHE IS REMINDED TO CALL FOR ASSIST TO GET UP TO THE BATHROOM DUE TO HER IV TUBING AND GETTING UP TO THE COMMODE. SHE DID HAVE ONE EPISODES OF INCONTINENCE LAST NIGHT. SHE HAD ONE LOOSE STOOL BUT SHE GOT URINE IN WITH IT SO UNABLE TO OBTAIN STOOL SAMPLE. REMAINS ON VANCO AND ZOSYN ORDERED FOR SEVERE SEPSIS DUE TO LT DIABETIC FOOT ULCERATION AND INFECTION FS DONE AC AND HS WAS 175. REMAINS ON NS AT 100. C/O INDIGESTION MEDICATED WITH TUMS. DRESSING IS INTACT TO HER LT FOOT WOUNDS WITH SOME DRAINAGE TO AREA. RESTING IN BED AT THIS TIME WITH CALL LIGHT IN REACH
[2024-11-14 05:31] LABS: BASOPHILS ABSOLUTE AUTO 0.03 K/mm3 (0.00-0.23); BASOPHILS PERCENT AUTO 0 % (0-2); EOSINOPHILS ABSOLUTE AUTO 0.18 K/mm3 (0.00-0.68); EOSINOPHILS PERCENT AUTO 2 % (0-6); Hematocrit 23.7 % (33.0-51.0); Hemoglobin 7.8 g/dL (11.5-16.0); IMMATURE GRAN ABSOLUTE AUTO 0.06 K/mm3 (0.00-0.10); IMMATURE GRAN PERCENT AUTO 1 % (0-1); LYMPHOCYTES ABSOLUTE AUTO 2.04 K/mm3 (0.84-5.20); LYMPHOCYTES PERCENT AUTO 19 % (21-46); MONOCYTES ABSOLUTE AUTO 0.94 K/mm3 (0.16-1.47); MONOCYTES PERCENT AUTO 9 % (4-13); Mean Corpuscular HGB 29.3 pg (26.0-34.0); Mean Corpuscular HGB Conc 32.9 g/dL (31.5-36.5); Mean Corpuscular Volume 89 fL (80-100); NEUTROPHILS ABSOLUTE AUTO 7.44 K/mm3 (1.96-9.15); NEUTROPHILS PERCENT AUTO 70 % (41-73); Platelet Count 166 K/mm3 (150-400); RDW Coefficient Variation 13.6 % (11.7-14.2); RDW Standard Deviation 44.5 fL (35.1-46.3); Red Blood Cell Count 2.66 M/mm3 (3.80-5.20); White Blood Cell Count 10.69 K/mm3 (4.00-11.30)
[2024-11-14 05:54] LABS: Anion Gap 12 mmol/L (3-11); Blood Urea Nitrogen 35 mg/dL (8-24); Bun/Creatinine Ratio 12.5 (12.0-20.0); CO2, Blood 21 mmol/L (21-32); Calcium, Blood 8.1 mg/dL (8.5-10.1); Chloride, Blood 107 mmol/L (98-108); Creatinine, Blood 2.81 mg/dL (0.40-1.00); Glomerular Filtration Rate 17 (60-); Glucose, Blood 116 mg/dL (70-99); Potassium, Blood 3.7 mmol/L (3.5-5.5); Sodium, Blood 136 mmol/L (136-145); Vancomycin, Random 17.2 ug/mL
[2024-11-14 07:32] VITALS: BP 131/61
[2024-11-14] MEDS ORDERED: Acetaminophen 325 MG TABLET PO PRN (08:05)
[2024-11-14] MEDS ORDERED: Vancomycin HCL 750 MG in NS 250 ML IV ONE (09:00)
[2024-11-14] MEDS ORDERED: TraMADol HCl 50 MG Tab PO SCH (10:15)
[2024-11-14] MEDS ORDERED: TraMADol HCl 50 MG Tab PO PRN (10:54)
[2024-11-14] MEDS ORDERED: Piperacillin/Tazobactam Sod 2.25 GM in NS 50 ML IV SCH (12:00)
[2024-11-14] MEDS ORDERED: Calcium Carbonate 500 MG Tab Chew PO PRN (12:25)
[2024-11-14 15:12] LABS: C DIFFICILE DNA NEGATIVE (Negative)
[2024-11-14] MEDS ORDERED: NS 1,000 ML IV SCH (15:35)
[2024-11-14 16:02] VITALS: BP 122/77
--- NOTE | 2024-11-14 18:10 | NUR ---
SHIFT SUMMARY PATIENT A/OX4. ABLE TO MAKE NEEDS KNOWN. COOPERATIVE WITH CARE, BUT PATIENT TEARFUYL INTERMITTENTLY THROUGHOUT THE SHIFT. PATIENT COMPLAINING OF GENERALIZED PAIN, MD NOTIFIE AND NEW ORDER FOR TRAMADOL RECIEVED AND ADMINISTERED. STOOL SAMPLE OBTAINED THIS MORNING FOR RULE OUT C DIFF, SPECIMEN NEGATIVE AND ISOLATION DISCONTINUED PER PROTOCOL. CRITICAL RESULTS CALLED IN THIS MORNING AT 0700 FOR POSITIVE BLOOD CULTURES WITH GRAM + COCCI AND CLUSTERS, BOTH DR. WADE AND DR. BROWN NOTIFIED. PATIENT FEBRILE THIS AM, MD NOTIFIED AND TYLENOL ORDER RECIEVED AND ADMINISTERED. EFFECTIVE IN LOWERING TEMPERATURE. IV TO RFA PAINFUL AND LEAKING, REMOVED AND NEW IV PLACED TO R WRIST. WOUND CARE PROVIDED PER ORDER TO LEFT FOOT AND GREAT TOE. VASCULAR STUDY COMPLETED THIS AFTERNOON. NO OTHER CONCERNS AT THIS TIME.
[2024-11-14 19:53] VITALS: BP 133/61
[2024-11-15 02:55] VITALS: BP 120/67
--- NOTE | 2024-11-15 05:09 | NUR ---
SHIFT SUMMARY NO ACUTE EVENTS DURING THIS SHIFT. PT IS A/O X4, PLEASANT AND COOPERATIVE WITH CARE. HS BG 126. AFEBRILE. PRN TYLENOL ADMINISTERED FOR C/O 6/10 LEFT FOOT PAIN. DRESSING C/D/I. NS INFUSING @100MLS/HR. IV ABX ADMINISTERED ORDERED. PT IS 1-PERSON ASSIST TO THE BSC. CONTINENT. BED AT THE LOWEST POSITION, CALL LIGHT WITHIN REACH. PT IS ABLE TO MAKE HER NEEDS KNOWN AND CALLS APPROPRIATELY.
[2024-11-15 07:54] VITALS: BP 128/62
[2024-11-15 09:04] LABS: BASOPHILS ABSOLUTE AUTO 0.03 K/mm3 (0.00-0.23); BASOPHILS PERCENT AUTO 0 % (0-2); EOSINOPHILS PERCENT AUTO 2 % (0-6); Hematocrit 25.8 % (33.0-51.0); Hemoglobin 8.3 g/dL (11.5-16.0); IMMATURE GRAN ABSOLUTE AUTO 0.06 K/mm3 (0.00-0.10); IMMATURE GRAN PERCENT AUTO 1 % (0-1); LYMPHOCYTES ABSOLUTE AUTO 2.73 K/mm3 (0.84-5.20); LYMPHOCYTES PERCENT AUTO 22 % (21-46); MONOCYTES ABSOLUTE AUTO 0.96 K/mm3 (0.16-1.47); MONOCYTES PERCENT AUTO 8 % (4-13); Mean Corpuscular HGB 29.5 pg (26.0-34.0); Mean Corpuscular HGB Conc 32.2 g/dL (31.5-36.5); Mean Corpuscular Volume 92 fL (80-100); Mean Platelet Volume 8.9 fL (9.1-12.4); NEUTROPHILS ABSOLUTE AUTO 8.64 K/mm3 (1.96-9.15); NEUTROPHILS PERCENT AUTO 69 % (41-73); Platelet Count 190 K/mm3 (150-400); RDW Coefficient Variation 13.9 % (11.7-14.2); RDW Standard Deviation 47.6 fL (35.1-46.3); Red Blood Cell Count 2.81 M/mm3 (3.80-5.20); White Blood Cell Count 12.62 K/mm3 (4.00-11.30)
[2024-11-15 09:36] LABS: Anion Gap 11 mmol/L (3-11); Blood Urea Nitrogen 31 mg/dL (8-24); Bun/Creatinine Ratio 11.4 (12.0-20.0); CO2, Blood 21 mmol/L (21-32); Calcium, Blood 8.5 mg/dL (8.5-10.1); Chloride, Blood 107 mmol/L (98-108); Creatinine, Blood 2.71 mg/dL (0.40-1.00); Glomerular Filtration Rate 18 (60-); Glucose, Blood 82 mg/dL (70-99); Potassium, Blood 3.6 mmol/L (3.5-5.5); Sodium, Blood 135 mmol/L (136-145); Vancomycin, Random 19.9 ug/mL
[2024-11-15 15:46] VITALS: BP 129/56
[2024-11-15] MEDS ORDERED: Vancomycin HCL 1,000 MG in NS 250 ML IV ONE (16:00)
--- NOTE | 2024-11-15 18:24 | NUR ---
ALERT AND ORIENTED X3, CLEARLY MAKES NEEDS KNOWN, CALL LIGHT WITH IN REACH, CONTACT ISOLATION FOR LEFT FOOT MRSA, ONE PERSON ASSIST TO INDEPEDANT TO BSC, MEDICATED FOR PAIN WITH TRAMDAOL AND TYLENOL, CALL LIGHT WITH IN REACH, WILL RELAY TO PM RN
[2024-11-15 19:31] VITALS: BP 135/65
[2024-11-15] MEDS ORDERED: Arginine/Glutamine/Calcium Hmb 1 Packet PO SCH (21:00)
--- NOTE | 2024-11-16 03:14 | NUR ---
SHIFT SUMMARY NO ACUTE EVENTS DURING THIS SHIFT. PT IS A/O X4, ABLE TO MAKE HER NEEDS KNOWN AND COOPERATIVE WITH CARE. PRN TRAMADOL ADMINISTERED AT HS FOR C/O 8/10 H/A AND LEFT FOOT PAIN. PT REPORTS EFFECTIVE. HS BG 168, INSULIN ADMINISTERED ORDERED. IV ABX ADMINISTERED ORDERED. BED AT THE LOWEST POSITION, CALL LIGHT W/I REACH.
[2024-11-16 04:10] VITALS: BP 130/66
[2024-11-16 06:41] LABS: BASOPHILS ABSOLUTE AUTO 0.05 K/mm3 (0.00-0.23); BASOPHILS PERCENT AUTO 0 % (0-2); EOSINOPHILS ABSOLUTE AUTO 0.22 K/mm3 (0.00-0.68); EOSINOPHILS PERCENT AUTO 2 % (0-6); Hematocrit 26.4 % (33.0-51.0); Hemoglobin 8.2 g/dL (11.5-16.0); IMMATURE GRAN ABSOLUTE AUTO 0.09 K/mm3 (0.00-0.10); IMMATURE GRAN PERCENT AUTO 1 % (0-1); LYMPHOCYTES ABSOLUTE AUTO 2.96 K/mm3 (0.84-5.20); LYMPHOCYTES PERCENT AUTO 24 % (21-46); MONOCYTES ABSOLUTE AUTO 0.97 K/mm3 (0.16-1.47); MONOCYTES PERCENT AUTO 8 % (4-13); Mean Corpuscular HGB 28.5 pg (26.0-34.0); Mean Corpuscular HGB Conc 31.1 g/dL (31.5-36.5); Mean Corpuscular Volume 92 fL (80-100); Mean Platelet Volume 9.1 fL (9.1-12.4); NEUTROPHILS ABSOLUTE AUTO 8.22 K/mm3 (1.96-9.15); NEUTROPHILS PERCENT AUTO 66 % (41-73); Platelet Count 230 K/mm3 (150-400); RDW Coefficient Variation 13.8 % (11.7-14.2); RDW Standard Deviation 46.6 fL (35.1-46.3); Red Blood Cell Count 2.88 M/mm3 (3.80-5.20); White Blood Cell Count 12.51 K/mm3 (4.00-11.30)
[2024-11-16 07:08] LABS: Bun/Creatinine Ratio 14.7 (12.0-20.0); Calcium, Blood 8.7 mg/dL (8.5-10.1); Creatinine, Blood 2.45 mg/dL (0.40-1.00); Potassium, Blood 4.1 mmol/L (3.5-5.5)
[2024-11-16 07:38] VITALS: BP 136/67
[2024-11-16] MEDS ORDERED: Piperacillin/Tazobactam Sod 2.25 GM in NS 50 ML IV SCH (10:30)
[2024-11-16 16:15] VITALS: BP 138/64
--- NOTE | 2024-11-16 18:36 | NUR ---
NO ACUTE CHANGES, INDEPEDANT TO BSC, ATTENDS CDI, CLEARLY MAKES NEEDS KNOWN, EMOTIONALLY LABILE, PATIENT BECOMES UPSET AND CRYING OVER MINMAL INTERVENTIONS, MEDICATED FOR PAIN, NEW BC DRAWN TODAY, POSSIBLE ANGIO GRAM AFTER THE BC FROM TODAY ARE RESULTED. IVF STOPPED, SL. NO INSULIN COVERAGE THROUGH THE DAY NEEDED. POOR APPETITE, DRSG CDI, CALL LIGHT WITH IN REACH, WILL RLEAY TO PM RN
[2024-11-16 19:35] VITALS: BP 148/64
--- NOTE | 2024-11-17 03:21 | NUR ---
SHIFT SUMMARY NO ACUTE EVENTS DURING THIS SHIFT. AT HS PT APPEARS SLIGHTLY AGITATED. REPORTS MODERATE TO SEVERE PAIN WHEN IV WAS ACCESSED FOR IV ABX'S, AND WHEN INSULIN ADMINISTERED, WELL WHEN HEPARIN WAS ADMINISTERED. HS B. @HS, PT C/O BACKPAIN 02/02, PRN TRAMADOL ADMINISTERED ORDERED. BED AT THE LOWEST POSITION, CALL LIGHT W/I REACH. PT IS A/OX4, ABLE TO MAKE HER NEEDS KNOWN AND COOPERATIVE WITH CARE.
[2024-11-17 04:36] VITALS: BP 142/68
[2024-11-17 04:43] LABS: BASOPHILS ABSOLUTE AUTO 0.05 K/mm3 (0.00-0.23); BASOPHILS PERCENT AUTO 0 % (0-2); EOSINOPHILS ABSOLUTE AUTO 0.25 K/mm3 (0.00-0.68); EOSINOPHILS PERCENT AUTO 2 % (0-6); Hematocrit 26.7 % (33.0-51.0); Hemoglobin 8.4 g/dL (11.5-16.0); IMMATURE GRAN ABSOLUTE AUTO 0.15 K/mm3 (0.00-0.10); IMMATURE GRAN PERCENT AUTO 1 % (0-1); LYMPHOCYTES ABSOLUTE AUTO 3.15 K/mm3 (0.84-5.20); LYMPHOCYTES PERCENT AUTO 28 % (21-46); MONOCYTES ABSOLUTE AUTO 0.85 K/mm3 (0.16-1.47); MONOCYTES PERCENT AUTO 8 % (4-13); Mean Corpuscular HGB 28.8 pg (26.0-34.0); Mean Corpuscular HGB Conc 31.5 g/dL (31.5-36.5); Mean Corpuscular Volume 91 fL (80-100); Mean Platelet Volume 8.8 fL (9.1-12.4); NEUTROPHILS ABSOLUTE AUTO 6.91 K/mm3 (1.96-9.15); NEUTROPHILS PERCENT AUTO 61 % (41-73); Platelet Count 276 K/mm3 (150-400); RDW Coefficient Variation 13.9 % (11.7-14.2); Red Blood Cell Count 2.92 M/mm3 (3.80-5.20); White Blood Cell Count 11.36 K/mm3 (4.00-11.30)
[2024-11-17 05:03] LABS: Anion Gap 10 mmol/L (3-11); Blood Urea Nitrogen 37 mg/dL (8-24); Bun/Creatinine Ratio 15.1 (12.0-20.0); CO2, Blood 22 mmol/L (21-32); Calcium, Blood 8.8 mg/dL (8.5-10.1); Chloride, Blood 106 mmol/L (98-108); Creatinine, Blood 2.45 mg/dL (0.40-1.00); Glomerular Filtration Rate 20 (60-); Glucose, Blood 88 mg/dL (70-99); Potassium, Blood 4.4 mmol/L (3.5-5.5); Sodium, Blood 134 mmol/L (136-145); Vancomycin, Trough 21.6 ug/mL (5.0-10.0)
[2024-11-17 07:11] VITALS: BP 123/59
[2024-11-17 15:35] VITALS: BP 137/65
--- NOTE | 2024-11-17 18:35 | NUR ---
no acute changes, dressing changes today, patient tolerated with ease, neuropathy in toes, medicated for heartburn with tums, tylenol for discomfort, alert and oriented x3, call light with in reach, will relay to pm rn
[2024-11-17 19:53] VITALS: BP 149/69
[2024-11-17] MEDS ORDERED: Vancomycin HCL 1,000 MG in NS 250 ML IV ONE (21:00)
[2024-11-18 04:51] VITALS: BP 134/64
[2024-11-18 06:01] LABS: BASOPHILS ABSOLUTE AUTO 0.07 K/mm3 (0.00-0.23); BASOPHILS PERCENT AUTO 1 % (0-2); EOSINOPHILS ABSOLUTE AUTO 0.23 K/mm3 (0.00-0.68); EOSINOPHILS PERCENT AUTO 2 % (0-6); Hematocrit 29.6 % (33.0-51.0); Hemoglobin 9.2 g/dL (11.5-16.0); IMMATURE GRAN ABSOLUTE AUTO 0.18 K/mm3 (0.00-0.10); IMMATURE GRAN PERCENT AUTO 2 % (0-1); LYMPHOCYTES ABSOLUTE AUTO 3.41 K/mm3 (0.84-5.20); LYMPHOCYTES PERCENT AUTO 35 % (21-46); MONOCYTES ABSOLUTE AUTO 0.78 K/mm3 (0.16-1.47); MONOCYTES PERCENT AUTO 8 % (4-13); Mean Corpuscular HGB 28.3 pg (26.0-34.0); Mean Corpuscular HGB Conc 31.1 g/dL (31.5-36.5); Mean Corpuscular Volume 91 fL (80-100); Mean Platelet Volume 8.6 fL (9.1-12.4); NEUTROPHILS ABSOLUTE AUTO 5.18 K/mm3 (1.96-9.15); NEUTROPHILS PERCENT AUTO 53 % (41-73); Platelet Count 335 K/mm3 (150-400); RDW Coefficient Variation 13.7 % (11.7-14.2); RDW Standard Deviation 46.2 fL (35.1-46.3); Red Blood Cell Count 3.25 M/mm3 (3.80-5.20); White Blood Cell Count 9.85 K/mm3 (4.00-11.30)
[2024-11-18 06:32] LABS: Bun/Creatinine Ratio 21.1 (12.0-20.0); Calcium, Blood 10.2 mg/dL (8.5-10.1); Creatinine, Blood 2.51 mg/dL (0.40-1.00); Potassium, Blood 4.8 mmol/L (3.5-5.5)
[2024-11-18 07:16] VITALS: BP 149/75
--- NOTE | 2024-11-18 07:33 | NUR ---
SHIFT SUMMARY AT START OF SHIFT, PT LYING IN BED. SHE HAS BEEN ANXIOUS, AND COMPLAINED OF HEART BURN. PT MEDICATED PER EMAR. SHE HAS BEEN PLEASANT AND COOPERATIVE WITH CARE. MEDICATED FOR PAIN PER EMAR. PT CALL LIGHT WITHIN REACH. CONTINUING TO MONITOR. PT CONTINUES TO SLEEP PEACEFULLY UPON Q2HR CHECKS. PT WOKE APPROX 0600 TO "SOMEONE IN MY ROOM CLEANING AND MAKING A LOT OF NOISE." PT NOW SITTING UP IN BED, PLAYING A GAME ON HER PHONE.
--- NOTE | 2024-11-18 11:54 | NUR ---
WOUND CARE PERFORMED WOUND CARE ON THE PTS LEFT GREAT TOE. CLEANSED WITH WOUND DUMB WAITER OPERATOR AND SWABED WITH BETADINE. APPLIED XEROFORM AND NON-STICK GAUZE OVER THE WOUND AND WRAPPED WITH KURLEX. SECURED WITH MEFIX TAPE. PT TOLERATED THE PROCEDURE WELL
[2024-11-18 16:03] VITALS: BP 134/72
--- NOTE | 2024-11-18 18:35 | NUR ---
SHIFT SUMMARY PT A&OX4. PT ADMITTED DUE TO GANGRENE ON FOOT. PT REPORTS NUMBNESS ON L FOOT. PT INDEPENDENT TO BSC. PT REPORTS PAIN, PAIN MANAGED PER EMAR. VSS. PT ACHS BLOOD SUGARS, INSULIN COVERAGE GIVEN PER SCALE. WOUND CARE COMPLETED. AWAITING BLOOD CULTURE RESULTS FOR POSSIBLE ANGIOGRAM. PT IN BED, BED IN LOWEST POSITION, CALL LIGHT IN REACH. NO ACUTE CHANGES NOTED.
[2024-11-18 19:33] VITALS: BP 141/61
[2024-11-19 04:58] LABS: BASOPHILS ABSOLUTE AUTO 0.05 K/mm3 (0.00-0.23); BASOPHILS PERCENT AUTO 1 % (0-2); EOSINOPHILS ABSOLUTE AUTO 0.25 K/mm3 (0.00-0.68); EOSINOPHILS PERCENT AUTO 3 % (0-6); Hematocrit 28.3 % (33.0-51.0); Hemoglobin 9.1 g/dL (11.5-16.0); IMMATURE GRAN ABSOLUTE AUTO 0.21 K/mm3 (0.00-0.10); IMMATURE GRAN PERCENT AUTO 2 % (0-1); LYMPHOCYTES ABSOLUTE AUTO 3.42 K/mm3 (0.84-5.20); LYMPHOCYTES PERCENT AUTO 34 % (21-46); MONOCYTES ABSOLUTE AUTO 0.73 K/mm3 (0.16-1.47); MONOCYTES PERCENT AUTO 7 % (4-13); Mean Corpuscular HGB Conc 32.2 g/dL (31.5-36.5); Mean Corpuscular Volume 90 fL (80-100); Mean Platelet Volume 8.2 fL (9.1-12.4); NEUTROPHILS ABSOLUTE AUTO 5.41 K/mm3 (1.96-9.15); NEUTROPHILS PERCENT AUTO 54 % (41-73); Platelet Count 346 K/mm3 (150-400); RDW Coefficient Variation 13.7 % (11.7-14.2); RDW Standard Deviation 45.3 fL (35.1-46.3); Red Blood Cell Count 3.14 M/mm3 (3.80-5.20); White Blood Cell Count 10.07 K/mm3 (4.00-11.30)
[2024-11-19 05:23] LABS: Vancomycin, Random 24.3 ug/mL
[2024-11-19 05:28] VITALS: BP 143/65
[2024-11-19 05:32] LABS: Bun/Creatinine Ratio 27.2 (12.0-20.0); Calcium, Blood 9.5 mg/dL (8.5-10.1); Creatinine, Blood 2.39 mg/dL (0.40-1.00); Potassium, Blood 4.9 mmol/L (3.5-5.5)
--- NOTE | 2024-11-19 05:47 | NUR ---
SHIFT SUMMARY PT IS ALERT AND ORIENTED TIMES 2-3 , FULL CODE. PT ADMITTED FOR GANGRENE LEFT FOOT. HARSHA STAGE 3B. WAITING RESULTS FOR SECOND BLOOD CULTURE . IF CULTURE IS NEGATIVE NEED TO SCHEDULE ANGIOGRAM.PT IS INDEPENDENT. . PT IS COOPERATIVE WITH CARE. PT DOES NOT NEED SUPPLEMENTAL OXYGEN. PT IS ON CONTACT PRECAUTIONS FOR MRSA IN WOUND. BED IS IN LOW POSITION, RAILS TIMES TWO, AND CALL LIGHT WITHIN REACH.
[2024-11-19 07:37] VITALS: BP 135/60
[2024-11-19 15:32] VITALS: BP 124/63
--- NOTE | 2024-11-19 19:50 | NUR ---
PT A&OX4, VSS, RA, WT BEARING TOLERATED. PAIN CONTROLLED WITH PRN TYELENOL AND TRAMADOL. WOUND CARE COMPLETED PER ORDER, PT TOLERATED WELL. NO GROWTH SO FAR ON REPEAT BLOOD CULTURES. PT CALLS APPROPRIATLY, COOPERATIVE WITH CARE.
[2024-11-19 20:15] VITALS: BP 138/70
[2024-11-19] MEDS ORDERED: Vancomycin HCL 1,000 MG in NS 250 ML IV ONE (21:00)
[2024-11-20 03:37] VITALS: BP 133/71
[2024-11-20 04:44] LABS: BASOPHILS ABSOLUTE AUTO 0.06 K/mm3 (0.00-0.23); BASOPHILS PERCENT AUTO 1 % (0-2); EOSINOPHILS ABSOLUTE AUTO 0.21 K/mm3 (0.00-0.68); EOSINOPHILS PERCENT AUTO 2 % (0-6); Hematocrit 29.4 % (33.0-51.0); Hemoglobin 9.3 g/dL (11.5-16.0); IMMATURE GRAN PERCENT AUTO 2 % (0-1); LYMPHOCYTES ABSOLUTE AUTO 3.89 K/mm3 (0.84-5.20); LYMPHOCYTES PERCENT AUTO 36 % (21-46); MONOCYTES PERCENT AUTO 7 % (4-13); Mean Corpuscular HGB 28.3 pg (26.0-34.0); Mean Corpuscular HGB Conc 31.6 g/dL (31.5-36.5); Mean Corpuscular Volume 89 fL (80-100); Mean Platelet Volume 8.2 fL (9.1-12.4); NEUTROPHILS ABSOLUTE AUTO 5.75 K/mm3 (1.96-9.15); NEUTROPHILS PERCENT AUTO 53 % (41-73); Platelet Count 402 K/mm3 (150-400); RDW Coefficient Variation 13.7 % (11.7-14.2); RDW Standard Deviation 45.3 fL (35.1-46.3); Red Blood Cell Count 3.29 M/mm3 (3.80-5.20); White Blood Cell Count 10.81 K/mm3 (4.00-11.30)
[2024-11-20 05:01] LABS: Bun/Creatinine Ratio 33.1 (12.0-20.0); Calcium, Blood 9.3 mg/dL (8.5-10.1); Creatinine, Blood 2.39 mg/dL (0.40-1.00); Potassium, Blood 4.6 mmol/L (3.5-5.5)
--- NOTE | 2024-11-20 06:30 | NUR ---
Coating Machine Feeder Consult ordered Patient appears to be in psychological distress as evidence by increased emotional sensitivity and anxiety. Tearful with the subject of son who took his own life a couple of years ago and anger/resentment when discussing her daughter. Prior to being homeless, patient states that she lived with daughter briefly. Patient claims daughter does not give her any food or water and "she tells me to get myself." Also, explains disdain for the slip operator's brusque statement regarding ampuation of infected foot. Patient may benefit from Plastic Bubble Packer services. Order placed.
--- NOTE | 2024-11-20 07:32 | NUR ---
Shift Summary AOx4. Ad edwardo. WBAT to LLE. Pain tolerable. Newly placed RAC IV, patient receiving Vanco. Meds whole with water. Dressing to L foot C/D/I. No acute events.
[2024-11-20 07:57] VITALS: BP 124/67
--- NOTE | 2024-11-20 12:58 | NUR ---
PATIENT WAS UP ON COMMODE AND PULLED EMERGENCY LIGHT. PHYSICALLY IMPAIRED TEACHER WALKED IN TO PATIENT SLOUCHED OVER ON TOILET, LOC LETHARGIC. TACHYPNIC. PATIENT ESCORTED BACK TO BED AND VITALS TAKEN. BLOOD/PRESSURE WAS IN THE 70'S SYSTOLICALLY. NOTIFIED DR. TORRES AND 500 ML BOLUS ORDERED. MIDODRINE 5 MG GIVEN. PT HAD ATTEMPTED TO TAKE MIDODRINE AND ELIQUIS BUT BECAME NAUSEAS AND VOMITED. 8 MG IV ZOFRAN GIVEN. AND 4 MG ORDERED PRN. PT HAS BLOOD PRESSURES BEING TAKEN 15 MINUTE INTERVAL.
[2024-11-20 16:03] VITALS: BP 115/67
--- NOTE | 2024-11-20 19:36 | NUR ---
SUMMARY PODIATRY CHANGED WOUND CARE ORDERS. WOUND CARE WAS COMPLETED PER ORDERS AFTER SHOWER. PATIENT MEDICATED WITH PRN TYLENOL X1 THIS AM AND TRAMADOL X1 THIS EVENING WITH REPORTED RELIEF. PT WILL BE NPO AFTER MIDNIGHT. CONSULT TO IR TO BE SENT IN AM.
[2024-11-20 19:40] VITALS: BP 137/74
[2024-11-21 04:09] VITALS: BP 122/72
[2024-11-21 05:25] LABS: BASOPHILS ABSOLUTE AUTO 0.05 K/mm3 (0.00-0.23); BASOPHILS PERCENT AUTO 1 % (0-2); EOSINOPHILS ABSOLUTE AUTO 0.21 K/mm3 (0.00-0.68); EOSINOPHILS PERCENT AUTO 2 % (0-6); Hematocrit 27.3 % (33.0-51.0); Hemoglobin 8.9 g/dL (11.5-16.0); IMMATURE GRAN ABSOLUTE AUTO 0.19 K/mm3 (0.00-0.10); IMMATURE GRAN PERCENT AUTO 2 % (0-1); LYMPHOCYTES ABSOLUTE AUTO 3.82 K/mm3 (0.84-5.20); LYMPHOCYTES PERCENT AUTO 35 % (21-46); MONOCYTES ABSOLUTE AUTO 0.74 K/mm3 (0.16-1.47); MONOCYTES PERCENT AUTO 7 % (4-13); Mean Corpuscular HGB 29.4 pg (26.0-34.0); Mean Corpuscular HGB Conc 32.6 g/dL (31.5-36.5); Mean Corpuscular Volume 90 fL (80-100); Mean Platelet Volume 8.3 fL (9.1-12.4); NEUTROPHILS ABSOLUTE AUTO 5.98 K/mm3 (1.96-9.15); NEUTROPHILS PERCENT AUTO 54 % (41-73); Platelet Count 406 K/mm3 (150-400); RDW Coefficient Variation 13.9 % (11.7-14.2); RDW Standard Deviation 45.9 fL (35.1-46.3); Red Blood Cell Count 3.03 M/mm3 (3.80-5.20); White Blood Cell Count 10.99 K/mm3 (4.00-11.30)
[2024-11-21 05:44] LABS: Bun/Creatinine Ratio 41.2 (12.0-20.0); Calcium, Blood 9.4 mg/dL (8.5-10.1); Creatinine, Blood 2.55 mg/dL (0.40-1.00); Potassium, Blood 4.4 mmol/L (3.5-5.5)
[2024-11-21 07:28] VITALS: BP 123/66
[2024-11-21 16:00] VITALS: BP 128/67
--- NOTE | 2024-11-21 17:57 | NUR ---
PT PLEASANT SOME EMOTIONAL TODAY. NO C/O PAIN. NPO TODAY UNTIL CALL FROM [facility] ABOUT 3PM. GAVE SNACK. ADA DINNER. THEN NPO MIDNITE FOR REVASCULARIZATION TOMMORROW. PER DR LUCIANO [facility]. NO OTHER CONCERNS NOTED. BED IN LOW POSITION, CALL LITE IN REACH, CALL APPROP
--- NOTE | 2024-11-21 18:09 | NUR ---
"Spiritual Care Consult | Ordered by Dr. Boss Pt. is awake in bed when she welcomes my visit. Pt. is pleasant. Facilitated a life review during which the Pt. displayed evidence of emotion when she spoke of her son who took his life 2 yrs ago. Listen with empathy and pastoral care. Pt. also verbalized about her daughter, granddaughter, and a great grandchild that she has never seen. This line of story telling was complete with nallely. Considered matters of manas and belief. Prayed with Pt. Pt. displayed evidence of a lightened mood, and welcomed this electric freight car operator to return tomorrow."
[2024-11-21 19:17] VITALS: BP 145/66
[2024-11-21 20:27] LABS: Vancomycin, Random 23.6 ug/mL
[2024-11-22] VITALS (14 sets, daily range): BP systolic 113–141; BP diastolic 65–88
--- NOTE | 2024-11-22 03:57 | NUR ---
CAGE CASHIER SHIFT SUMMARY PATIENT ADMITTED FOR GANGRENE OF FOOT. ALERT AND ORIENTED X4. PATIENT NPO SINCE MIDNIGHT FOR REVASCULARIZATION PROCEDURE. VITAL SIGNS STABLE. COOPERATIVE WITH CARE. DRESSING CHANGED THIS SHIFT AND IS CLEAN DRY AND INTACT. INDEPENDENT IN ROOM TO BEDSIDE COMMODE. ABLE TO TURN IN BED WITH NO ASSISSTANCE. RESTING QUIETLY WITH FEW INTERRUPTIONS. BED RAILS UP X2. CALL LIGHT WITH IN REACH. BED IN LOWEST POSITION FOR SAFETY. WILL CONTINUE TO MONITOR.
--- NOTE | 2024-11-22 04:56 | NUR ---
NURSE PRECEPTOR NOTE I HAVE WORKED ALONG SIDE OF/WITH STUDENT AND HAVE READ AN AGREE WITH HER DOCUMENTATION.
[2024-11-22 07:08] LABS: BASOPHILS ABSOLUTE AUTO 0.06 K/mm3 (0.00-0.23); BASOPHILS PERCENT AUTO 1 % (0-2); EOSINOPHILS ABSOLUTE AUTO 0.21 K/mm3 (0.00-0.68); EOSINOPHILS PERCENT AUTO 2 % (0-6); Hematocrit 30.5 % (33.0-51.0); Hemoglobin 9.9 g/dL (11.5-16.0); IMMATURE GRAN ABSOLUTE AUTO 0.21 K/mm3 (0.00-0.10); IMMATURE GRAN PERCENT AUTO 2 % (0-1); LYMPHOCYTES ABSOLUTE AUTO 4.26 K/mm3 (0.84-5.20); LYMPHOCYTES PERCENT AUTO 35 % (21-46); MONOCYTES ABSOLUTE AUTO 0.77 K/mm3 (0.16-1.47); MONOCYTES PERCENT AUTO 6 % (4-13); Mean Corpuscular HGB Conc 32.5 g/dL (31.5-36.5); Mean Corpuscular Volume 89 fL (80-100); Mean Platelet Volume 8.2 fL (9.1-12.4); NEUTROPHILS ABSOLUTE AUTO 6.58 K/mm3 (1.96-9.15); NEUTROPHILS PERCENT AUTO 55 % (41-73); Platelet Count 442 K/mm3 (150-400); RDW Coefficient Variation 14.1 % (11.7-14.2); RDW Standard Deviation 45.7 fL (35.1-46.3); Red Blood Cell Count 3.41 M/mm3 (3.80-5.20); White Blood Cell Count 12.09 K/mm3 (4.00-11.30)
[2024-11-22 07:22] LABS: Anion Gap 16 mmol/L (3-11); Blood Urea Nitrogen 109 mg/dL (8-24); Bun/Creatinine Ratio 46.6 (12.0-20.0); CO2, Blood 21 mmol/L (21-32); Calcium, Blood 9.5 mg/dL (8.5-10.1); Chloride, Blood 100 mmol/L (98-108); Creatinine, Blood 2.34 mg/dL (0.40-1.00); Glomerular Filtration Rate 21 (60-); Glucose, Blood 183 mg/dL (70-99); Potassium, Blood 4.1 mmol/L (3.5-5.5); Sodium, Blood 133 mmol/L (136-145); Vancomycin, Random 20.9 ug/mL
--- NOTE | 2024-11-22 11:50 | NUR ---
Pt. is awake and was walking in her room when she welcomed my visit. Pt. is displaying evidence of anxiety for her procedure which may cause her to lose a toe. Listen with empathy and a calming presence Pt. displayed evidence of frustrated understanding. Pt. verbalized disfavor with her NPO status and the delay in her procediure. Seek to normalize the Pt. experience. Prayed with the Pt. Pt. verbalized gratitude for the spiritual care visit. Will check on Pt. before the end of my shift.
[2024-11-22] MEDS ORDERED: NS 1,000 ML IV ONE ×2 (12:51→12:52)
[2024-11-22] MEDS ORDERED: Heparin Sodium 1000 Units/ML 10ML MDV ONE (12:51)
[2024-11-22] MEDS ORDERED: NS 250 ML IV ONE (12:51)
[2024-11-22] MEDS ORDERED: Nitroglycerin 2 MG/20 ML BTL ONE (12:52)
[2024-11-22] MEDS ORDERED: FentaNYL Citrate 50 MCG/ML 2 ML Injection ONE ×2 (13:14→13:56)
[2024-11-22] MEDS ORDERED: Midazolam HCl 1MG / ML 2ML Vial ONE ×2 (13:17→13:54)
--- NOTE | 2024-11-22 14:32 | NUR ---
ASSUMPTION OF CARE I ASSUMED CARE OF THIS PT WITH MY PRECEPTOR, MAURA. PT IS RESTING CALMLY IN BED WITH BED ALARM SET. BELONGINGS IN ROOM. ISOLATION PRECAUTIONS IN PLACE.
--- NOTE | 2024-11-22 14:34 | NUR ---
PT TRANSFERED TO PCU 07 FROM [address] [facility] W/ DR. LUCIANO. THE PT ARRIVED IN BED ON RA. SP02 >93%, DENIES SOB. ON TELE SHE IS SR, BP STABLE. SEQUENCE VITAL SIGNS IN PLACE PER PROTOCOL. PT LAYING SUPINE. RIGHT GROIN SITE W/ CHG TEGADERM INTACT. NO HEMATOMA, TENDERNESS, BLEEDING, OR SWELLING. LEFT FOOT WITH DRESSING INTACT. PT DENIES ANY PAIN AT THIS TIME. CALL LIGHT GIVEN TO THE PT, BED ALARM INTACT. REPORT RECEIVED FROM HENRIQUE LOCO RN. REPORT PASSED TO PRIMARY RN MAURA Charles
--- NOTE | 2024-11-22 14:34 | NUR ---
THIS RN RECIEVED REPORT FROM LILLY WHO WAS COVERING FOR BREAK, THIS RN TO TAKE OVER CARE. PT A/O AND UPDATE ON FREQUENT VITALS POST PROCEDURE, PT VRABLIZED UNDERSTANDING.
--- NOTE | 2024-11-22 18:58 | NUR ---
SHIFT SUMMARY PT A/OX4 SINCE ARRIVING TO UNIT. PT GROIN SITE C/D/I WITH NO TENDERNESS NOTED. PT VSS SINCE ARRIVING TO UNIT. PT DENIED CHEST PAIN/PRESSURE AND SOB/DYSPNEA SINCE ARRIVING TO UNIT.
--- NOTE | 2024-11-22 18:58 | NUR ---
STUDENT DICTATING TRANSCRIBING MACHINE SERVICER THIS RN OVERSAW, REVIEWED AND AGREES WITH STUDENT RN'S ASSESSMENTS AND CHARTING.
[2024-11-23 04:16] LABS: BASOPHILS ABSOLUTE AUTO 0.06 K/mm3 (0.00-0.23); BASOPHILS PERCENT AUTO 1 % (0-2); EOSINOPHILS ABSOLUTE AUTO 0.17 K/mm3 (0.00-0.68); EOSINOPHILS PERCENT AUTO 1 % (0-6); Hematocrit 29.1 % (33.0-51.0); Hemoglobin 9.2 g/dL (11.5-16.0); IMMATURE GRAN ABSOLUTE AUTO 0.11 K/mm3 (0.00-0.10); IMMATURE GRAN PERCENT AUTO 1 % (0-1); LYMPHOCYTES ABSOLUTE AUTO 3.87 K/mm3 (0.84-5.20); LYMPHOCYTES PERCENT AUTO 32 % (21-46); MONOCYTES ABSOLUTE AUTO 0.83 K/mm3 (0.16-1.47); MONOCYTES PERCENT AUTO 7 % (4-13); Mean Corpuscular HGB 28.8 pg (26.0-34.0); Mean Corpuscular HGB Conc 31.6 g/dL (31.5-36.5); Mean Corpuscular Volume 91 fL (80-100); Mean Platelet Volume 8.5 fL (9.1-12.4); NEUTROPHILS ABSOLUTE AUTO 6.92 K/mm3 (1.96-9.15); NEUTROPHILS PERCENT AUTO 58 % (41-73); Platelet Count 437 K/mm3 (150-400); RDW Coefficient Variation 14.1 % (11.7-14.2); Red Blood Cell Count 3.19 M/mm3 (3.80-5.20); White Blood Cell Count 11.96 K/mm3 (4.00-11.30)
[2024-11-23 04:44] LABS: Anion Gap 13 mmol/L (3-11); Blood Urea Nitrogen 106 mg/dL (8-24); Bun/Creatinine Ratio 48.2 (12.0-20.0); CO2, Blood 22 mmol/L (21-32); Calcium, Blood 9.3 mg/dL (8.5-10.1); Chloride, Blood 102 mmol/L (98-108); Glomerular Filtration Rate 23 (60-); Glucose, Blood 185 mg/dL (70-99); Potassium, Blood 4.3 mmol/L (3.5-5.5); Sodium, Blood 133 mmol/L (136-145); Vancomycin, Random 18.2 ug/mL
[2024-11-23 04:50] VITALS: BP 128/67
[2024-11-23] MEDS ORDERED: Vancomycin HCL 1,000 MG in NS 250 ML IV ONE (07:40)
--- NOTE | 2024-11-23 10:09 | NUR ---
CALLED REPORT TO MARLENE ON MEDICAL FLOOR. PATIENT A/OX4. TELE DC. ON ROOM AIR. REPORTS 3/10 PAIN TO LEFT FOOT. DRESSING CDI, DID NOT REMOVE. IV TO Jacinto AC.
--- NOTE | 2024-11-23 10:20 | NUR ---
PATIENT LEFT PCU TO ROOM 359.
[2024-11-23 15:57] VITALS: BP 133/74
[2024-11-23 19:17] VITALS: BP 118/65
[2024-11-24 04:12] VITALS: BP 132/52
--- NOTE | 2024-11-24 04:17 | NUR ---
Shift Summary AOx4. Patient verbalizing she is tired and did not want much interaction. Appeared to be mentally exhausted. Pt sighed deeply as this RN entered room to assess/medicate. After meds and assessment were finished, pt tried adjusting self in bed and accidentally hit the foot board with affected foot. Offered to remove board, but pt responded loudly "I just want to go to sleep." and then began sobbing. Ensured comfort and safety. No additional c/o pain.
[2024-11-24 07:16] VITALS: BP 109/63
[2024-11-24 11:41] LABS: BASOPHILS ABSOLUTE AUTO 0.05 K/mm3 (0.00-0.23); BASOPHILS PERCENT AUTO 0 % (0-2); EOSINOPHILS ABSOLUTE AUTO 0.15 K/mm3 (0.00-0.68); EOSINOPHILS PERCENT AUTO 1 % (0-6); Hematocrit 28.2 % (33.0-51.0); IMMATURE GRAN ABSOLUTE AUTO 0.09 K/mm3 (0.00-0.10); IMMATURE GRAN PERCENT AUTO 1 % (0-1); LYMPHOCYTES ABSOLUTE AUTO 3.46 K/mm3 (0.84-5.20); LYMPHOCYTES PERCENT AUTO 28 % (21-46); MONOCYTES PERCENT AUTO 6 % (4-13); Mean Corpuscular HGB 28.8 pg (26.0-34.0); Mean Corpuscular HGB Conc 31.9 g/dL (31.5-36.5); Mean Corpuscular Volume 90 fL (80-100); Mean Platelet Volume 8.2 fL (9.1-12.4); NEUTROPHILS ABSOLUTE AUTO 8.13 K/mm3 (1.96-9.15); NEUTROPHILS PERCENT AUTO 65 % (41-73); Platelet Count 391 K/mm3 (150-400); RDW Coefficient Variation 14.4 % (11.7-14.2); RDW Standard Deviation 46.9 fL (35.1-46.3); Red Blood Cell Count 3.12 M/mm3 (3.80-5.20); White Blood Cell Count 12.58 K/mm3 (4.00-11.30)
[2024-11-24 12:14] LABS: Bun/Creatinine Ratio 58.4 (12.0-20.0); Calcium, Blood 9.2 mg/dL (8.5-10.1); Creatinine, Blood 2.14 mg/dL (0.40-1.00)
[2024-11-24 15:21] VITALS: BP 124/63
--- NOTE | 2024-11-24 16:28 | NUR ---
NO CHANGES IN PT STATUS TODAY. PT HAD NO C/O PAIN, SOB OR CHEST PAIN.
[2024-11-24 19:30] VITALS: BP 140/70
--- NOTE | 2024-11-25 05:19 | NUR ---
SHIFT SUMMARY: PT AOX4 IND IN THE ROOM, CALLS APPRORPAITELY AND ABLE TO MAKE NEEDS KNOWN. NO ACUTE OVERNIGHT EVENTS. TOLERATING MEDICATIONS WELL. SLEPT ALL NIGHT WITHOUT ISSUE. PT IN BED SLEEPING, BED IN LOWEST POSITION, CALL LIGHT IN REACH. CONTINUING CARE.
[2024-11-25 06:35] LABS: Vancomycin, Random 19.4 ug/mL
[2024-11-25 07:12] VITALS: BP 119/79
[2024-11-25 07:16] LABS: BASOPHILS ABSOLUTE AUTO 0.05 K/mm3 (0.00-0.23); BASOPHILS PERCENT AUTO 0 % (0-2); Calcium, Blood 9.4 mg/dL (8.5-10.1); Creatinine, Blood 2.41 mg/dL (0.40-1.00); EOSINOPHILS ABSOLUTE AUTO 0.18 K/mm3 (0.00-0.68); EOSINOPHILS PERCENT AUTO 2 % (0-6); Hematocrit 27.5 % (33.0-51.0); Hemoglobin 8.7 g/dL (11.5-16.0); IMMATURE GRAN ABSOLUTE AUTO 0.09 K/mm3 (0.00-0.10); IMMATURE GRAN PERCENT AUTO 1 % (0-1); LYMPHOCYTES ABSOLUTE AUTO 4.13 K/mm3 (0.84-5.20); LYMPHOCYTES PERCENT AUTO 36 % (21-46); MONOCYTES ABSOLUTE AUTO 0.82 K/mm3 (0.16-1.47); MONOCYTES PERCENT AUTO 7 % (4-13); Mean Corpuscular HGB 28.2 pg (26.0-34.0); Mean Corpuscular HGB Conc 31.6 g/dL (31.5-36.5); Mean Corpuscular Volume 89 fL (80-100); Mean Platelet Volume 8.7 fL (9.1-12.4); NEUTROPHILS ABSOLUTE AUTO 6.31 K/mm3 (1.96-9.15); NEUTROPHILS PERCENT AUTO 54 % (41-73); Platelet Count 436 K/mm3 (150-400); Potassium, Blood 4.3 mmol/L (3.5-5.5); RDW Coefficient Variation 14.2 % (11.7-14.2); RDW Standard Deviation 46.1 fL (35.1-46.3); Red Blood Cell Count 3.08 M/mm3 (3.80-5.20); White Blood Cell Count 11.58 K/mm3 (4.00-11.30)
[2024-11-25] MEDS ORDERED: Vancomycin HCL 750 MG in NS 250 ML IV ONE (08:00)
[2024-11-25] MEDS ORDERED: NS 250 ML IV PRN (08:50)
[2024-11-25 15:24] VITALS: BP 122/69
--- NOTE | 2024-11-25 18:43 | NUR ---
SHIFT SUMMARY PT AOX4, COOPERATIVE, ABLE TO MAKE NEEDS KNOWN. PT HAS BEEN FAIRLY IRRITABLE TODAY WITH CARE. COMPLAINING TO THIS RN THAT I AM GIVING INSULIN DURING HER MEAL, WHEN ASKED IF SHE WANTS IT LATER, SHE SAYS "NO, JUST GIVE IT TO ME". AMBULATES TO BATHROOM IND, TOELRATING PO AND IV MEDICATION. DELIVERY TABLE FEEDER PERFORMED WOUND CARE TODAY. PLAN FOR PROCEDURE ON MONDAY. BED IN LOWEST POSITION, CALL LIGHT WITHIN REACH.
[2024-11-25 19:39] VITALS: BP 146/77
[2024-11-26 02:35] VITALS: BP 161/89
[2024-11-26 04:54] LABS: BASOPHILS PERCENT AUTO 1 % (0-2); EOSINOPHILS ABSOLUTE AUTO 0.22 K/mm3 (0.00-0.68); EOSINOPHILS PERCENT AUTO 2 % (0-6); Hematocrit 29.1 % (33.0-51.0); Hemoglobin 9.4 g/dL (11.5-16.0); IMMATURE GRAN ABSOLUTE AUTO 0.11 K/mm3 (0.00-0.10); IMMATURE GRAN PERCENT AUTO 1 % (0-1); LYMPHOCYTES ABSOLUTE AUTO 4.65 K/mm3 (0.84-5.20); LYMPHOCYTES PERCENT AUTO 34 % (21-46); MONOCYTES ABSOLUTE AUTO 0.95 K/mm3 (0.16-1.47); MONOCYTES PERCENT AUTO 7 % (4-13); Mean Corpuscular HGB 28.9 pg (26.0-34.0); Mean Corpuscular HGB Conc 32.3 g/dL (31.5-36.5); Mean Corpuscular Volume 90 fL (80-100); Mean Platelet Volume 8.7 fL (9.1-12.4); NEUTROPHILS ABSOLUTE AUTO 7.71 K/mm3 (1.96-9.15); NEUTROPHILS PERCENT AUTO 56 % (41-73); Platelet Count 439 K/mm3 (150-400); RDW Coefficient Variation 14.2 % (11.7-14.2); RDW Standard Deviation 46.3 fL (35.1-46.3); Red Blood Cell Count 3.25 M/mm3 (3.80-5.20); White Blood Cell Count 13.74 K/mm3 (4.00-11.30)
--- NOTE | 2024-11-26 05:04 | NUR ---
RECVD VSS, A&OX4, WAS IND , HAS FEDE BANDAGED WRAPPED WELL ON FOOT APPEARING INTACT, STILL + FOR MRSA / INFECTION, EASILY IRRITATED AND TRIGERRED BY PAIN ON HEPARIN ADMIN ON ABDOMEN, THEN INSISTED TO DO INSULIN INJ ON HER OWN THEREAFTER , WBC STILL HIGH IN MORNING BLD SUGARS NOT WELL CONTROLLED. ABLE TO SLEEP WELL AT NIGHT. AWAITS FINAL PLAN FROM MOTOR ROUTE CARRIER FOR PROBABLE PROCEDURE ON MON VERBALISED BY PREV STAFF.
[2024-11-26 05:18] LABS: Albumin, Blood 2.9 g/dL (3.4-5.0); Albumin/Globulin Ratio 0.5 (0.8-1.8); Bilirubin, Total 0.3 mg/dL (0.1-1.0); Bun/Creatinine Ratio 52.4 (12.0-20.0); Calcium, Blood 9.3 mg/dL (8.5-10.1); Creatinine, Blood 2.25 mg/dL (0.40-1.00); Globulin, Blood 5.9 g/dL (2.2-4.0); Magnesium, Blood 2.5 mg/dL (1.6-2.4); Potassium, Blood 4.5 mmol/L (3.5-5.5); Total Protein, Blood 8.8 g/dL (6.4-8.2)
[2024-11-26 07:26] VITALS: BP 108/63
--- NOTE | 2024-11-26 14:46 | NUR ---
"Spiritual Care | Nurse Request At the request of the Pts. attending nurse this card feeder visited the Pt. at bedside. Pt. is pleasant and welcomed my visit. This card feeder has visited this Pt. on several occassions. Pt. displayed some evidence of being anxious about her upcoming amputation of some of her toes. Listen with empathy and a calming presence. Pt. verbalized that her main concern is not having been briefed about post-op expectations. With theraputic listening this card feeder softly seeks to normalize the Pt. experience. Pt. displays evidence of understanding and agreement and diminished anxiety. Prayed with the Pt. and will remain available to her after the procedure."
[2024-11-26 16:04] VITALS: BP 131/63
--- NOTE | 2024-11-26 18:04 | NUR ---
SHIFT SUMMARY PT AOX4, COOPERATIVE, ABLE TO MAKE NEEDS KNOWN. PT IS IND TO BATHROOM FOR VOIDING. TOLERATING PO AND IV MEDICATION. EXHIBITS SOME SIGNS OF ANXIETY NOTED BY PT CRYING AND TALKING ABOUT PROCEDURE TOMORROW. CONSULTED SPIRITUAL CARE PER PT REQUEST. SUPPOSED TO HAVE LEFT 1ST TOE AMPUTATION TOMORROW, NPO AFTER MIDNIGHT. BED IN LOWEST POSITION, CALL LIGHT WITHIN REACH.
[2024-11-26] MEDS ORDERED: NS 1,000 ML IV SCH (20:00)
[2024-11-26 20:07] VITALS: BP 133/66
[2024-11-26] MEDS ORDERED: Insulin Glargine-Yfgn 100 Unit/mL 3 ML SYR SC SCH (21:00)
[2024-11-26] MEDS ORDERED: CefTRIAXone Sodium 1,000 MG in NS 100 ML IV SCH (21:00)
[2024-11-26] MEDS ORDERED: Insulin Regular 100 UNIT/ML 10ML Vial SC SCH (21:00)
[2024-11-27] VITALS (17 sets, daily range): BP systolic 124–154; BP diastolic 76–86
[2024-11-27 05:03] LABS: BASOPHILS ABSOLUTE AUTO 0.08 K/mm3 (0.00-0.23); BASOPHILS PERCENT AUTO 1 % (0-2); EOSINOPHILS ABSOLUTE AUTO 0.23 K/mm3 (0.00-0.68); EOSINOPHILS PERCENT AUTO 2 % (0-6); Hematocrit 28.7 % (33.0-51.0); Hemoglobin 9.2 g/dL (11.5-16.0); IMMATURE GRAN ABSOLUTE AUTO 0.12 K/mm3 (0.00-0.10); IMMATURE GRAN PERCENT AUTO 1 % (0-1); LYMPHOCYTES ABSOLUTE AUTO 4.39 K/mm3 (0.84-5.20); LYMPHOCYTES PERCENT AUTO 35 % (21-46); MONOCYTES ABSOLUTE AUTO 0.78 K/mm3 (0.16-1.47); MONOCYTES PERCENT AUTO 6 % (4-13); Mean Corpuscular HGB 28.8 pg (26.0-34.0); Mean Corpuscular HGB Conc 32.1 g/dL (31.5-36.5); Mean Corpuscular Volume 90 fL (80-100); Mean Platelet Volume 8.7 fL (9.1-12.4); NEUTROPHILS ABSOLUTE AUTO 6.92 K/mm3 (1.96-9.15); NEUTROPHILS PERCENT AUTO 55 % (41-73); Platelet Count 427 K/mm3 (150-400); RDW Coefficient Variation 14.5 % (11.7-14.2); RDW Standard Deviation 46.5 fL (35.1-46.3); Red Blood Cell Count 3.19 M/mm3 (3.80-5.20); White Blood Cell Count 12.52 K/mm3 (4.00-11.30)
[2024-11-27 05:25] LABS: Alanine Aminotransfer (ALT/SGP 18 U/L (12-78); Albumin, Blood 2.7 g/dL (3.4-5.0); Albumin/Globulin Ratio 0.5 (0.8-1.8); Alk Phos 113 U/L (50-136); Anion Gap 11 mmol/L (3-11); Aspartate Aminotrans (AST/SGOT 11 U/L (12-37); Bilirubin, Total 0.2 mg/dL (0.1-1.0); Blood Urea Nitrogen 114 mg/dL (8-24); Bun/Creatinine Ratio 59.1 (12.0-20.0); CO2, Blood 20 mmol/L (21-32); Calcium, Blood 9.1 mg/dL (8.5-10.1); Chloride, Blood 107 mmol/L (98-108); Creatinine, Blood 1.93 mg/dL (0.40-1.00); Globulin, Blood 5.6 g/dL (2.2-4.0); Glomerular Filtration Rate 27 (60-); Glucose, Blood 192 mg/dL (70-99); Magnesium, Blood 2.4 mg/dL (1.6-2.4); Potassium, Blood 4.4 mmol/L (3.5-5.5); Sodium, Blood 134 mmol/L (136-145); Total Protein, Blood 8.3 g/dL (6.4-8.2); Vancomycin, Random 17.6 ug/mL
--- NOTE | 2024-11-27 05:31 | NUR ---
SHIFT SUMMARY: PT AOX4 IND/SBA IN THE ROOM. HAVING GOOD OUTPUT. VERY ANXIOUS ABOUT THE PROCEDURE AND NOT ABLE TO SLEEP WELL. CLEARLY IN SOME DISTRESS ABOUT IT BUT WAS ABLE TO TALK PT AND CALM HER DOWN PLUS WALK HER THROUGH SOME ASPECTS OF CARE. PT SEEMS TO BE DOING BETTER. TOLERATING MEDICATION WELL. NO ACUTE OVERNIGHT EVENTS. PT IN BED RESTING, BED IN LOWEST POSITION, CALL LIGHT IN REACH. CONTINUING CARE.
[2024-11-27] MEDS ORDERED: Vancomycin HCL 750 MG in NS 250 ML IV ONE (08:25)
--- NOTE | 2024-11-27 15:01 | NUR ---
PRE OP NOTE PT A&OX4, VSS, BREATHING RA. Patient up to Ambulate independently. Gait steady. Patient confirms NPO status and agrees with scheduled surgery. Pre-Op teaching done. Pt verbalizes understanding. PT BELONGINGS (PURSE, GLASSES, CELL PHONE) LOCKED IN LOCKED CABINET OUTSIDE OF HOSPITAL ROOM. DENTURES LEFT IN DENTURE CUP IN PT ROOM. L FOOT WRAPPED IN GAUZE AND FEDE WRAP.
[2024-11-27] MEDS ORDERED: Lactated Ringer's 1,000 ML IV SCH (15:10)
[2024-11-27] MEDS ORDERED: Ropivacaine 0.5% HCL/PF 5 MG/ML 30ML Vial ONE (15:35)
[2024-11-27] MEDS ORDERED: Lidocaine HCl 1% 30 ML SDV ONE (15:36)
[2024-11-27] MEDS ORDERED: propofoL 20 ML IV ONE (15:42)
--- NOTE | 2024-11-27 15:42 | NUR ---
IV TO R WRIST DC'D, PAINFUL AND PUFFY AFTER RUNNING LR. NEW 20G IV STARTED IN L FA.
[2024-11-27] MEDS ORDERED: HYDROmorphone HCl/Pf 1MG SYR IV PRN ×2 (15:50→15:55)
[2024-11-27] MEDS ORDERED: Labetalol HCL 5 MG/ML 4ML Injection (Single Dose) IV PRN (15:50)
[2024-11-27] MEDS ORDERED: Ondansetron HCl 2 MG / ML 2ML Vial IV PRN (15:50)
[2024-11-27] MEDS ORDERED: FentaNYL Citrate 50 MCG/ML 2 ML Injection IV PRN ×3 (15:50→20:35)
[2024-11-27] MEDS ORDERED: Ondansetron HCl 2 MG / ML 2ML Vial ONE (15:54)
[2024-11-27] MEDS ORDERED: Dexamethasone Sod Phos 10 MG/ML 1ML VIAL ONE (15:54)
[2024-11-27] MEDS ORDERED: FentaNYL Citrate 50 MCG/ML 2 ML Injection ONE (15:54)
[2024-11-27] MEDS ORDERED: Phenylephrine HCl 100 MCG/ML-NS 10MLSYR (1MG/10ML) ONE (16:03)
[2024-11-27] MEDS ORDERED: Glycopyrrolate 0.2 MG/ML 5ML VIAL ONE (16:04)
--- NOTE | 2024-11-27 17:54 | NUR ---
PT ARRIVED FROM PACU. ALERT AND ORIENTED X4, DENIES PAIN AT THIS TIME. VSS STABLE, WILL CONTINUE TO MONITOR VS PER POLICY.
--- NOTE | 2024-11-27 17:58 | NUR ---
Pt. is awake in bed having just returned from the PACU from surgery. Pt. displays evidence of being in good spirits, but us also unsettled by not knowing the initial results of the procedure. Facilitated a conversation that covered the Pts. pre surgeryy concerns. Pt. verbalized that she still doesn't feel any pain from the surgery. Listen with empathy and a calming spirit and seek to normalize the Pt. experience. Pastoral encouragement to remain ahead of the pain threshold is given. Took Pts. hand and Prayed with the Pt. Pt. verbalized gratitude for the spiritual care visit.
--- NOTE | 2024-11-27 18:13 | NUR ---
PT L GREAT TOE REMOVED 11/27/24. VSS, CURRENTLY SITTING UP IN BED EATING. PT IS NON WEIGHT-BEARING ON L FOOT. STAND PIVOT WITH ASSIST TO BEDSIDE COMMODE. DRESSING IS C/D/I. ORIENTED X4. DENIES PAIN.
[2024-11-27] MEDS ORDERED: HydrOXYzine Pamoate 25 MG Cap PO PRN (20:35)
[2024-11-27] MEDS ORDERED: Insulin Glargine-Yfgn 100 Unit/mL 3 ML SYR SC SCH (21:00)
[2024-11-28 04:04] VITALS: BP 133/72
[2024-11-28 06:13] LABS: BASOPHILS ABSOLUTE AUTO 0.05 K/mm3 (0.00-0.23); BASOPHILS PERCENT AUTO 1 % (0-2); EOSINOPHILS ABSOLUTE AUTO 0.01 K/mm3 (0.00-0.68); EOSINOPHILS PERCENT AUTO 0 % (0-6); Hematocrit 28.8 % (33.0-51.0); IMMATURE GRAN ABSOLUTE AUTO 0.08 K/mm3 (0.00-0.10); IMMATURE GRAN PERCENT AUTO 1 % (0-1); LYMPHOCYTES PERCENT AUTO 29 % (21-46); MONOCYTES ABSOLUTE AUTO 0.31 K/mm3 (0.16-1.47); MONOCYTES PERCENT AUTO 3 % (4-13); Mean Corpuscular HGB 28.8 pg (26.0-34.0); Mean Corpuscular HGB Conc 31.3 g/dL (31.5-36.5); Mean Corpuscular Volume 92 fL (80-100); Mean Platelet Volume 9.1 fL (9.1-12.4); NEUTROPHILS ABSOLUTE AUTO 6.22 K/mm3 (1.96-9.15); NEUTROPHILS PERCENT AUTO 66 % (41-73); Platelet Count 455 K/mm3 (150-400); RDW Coefficient Variation 14.7 % (11.7-14.2); RDW Standard Deviation 49.5 fL (35.1-46.3); Red Blood Cell Count 3.13 M/mm3 (3.80-5.20); White Blood Cell Count 9.37 K/mm3 (4.00-11.30)
--- NOTE | 2024-11-28 06:21 | NUR ---
SHIFT SUMMARY; PATIENT SLEPT IN LONG INTERVAL. AGITATES QUICKLY, ENDS UP SCREAMING AT ME. DRESSING CD&I, CIRC CHECK WNL TO L FOOT.
[2024-11-28 06:49] LABS: Albumin, Blood 2.6 g/dL (3.4-5.0); Albumin/Globulin Ratio 0.4 (0.8-1.8); Bilirubin, Total 0.1 mg/dL (0.1-1.0); Bun/Creatinine Ratio 52.4 (12.0-20.0); Calcium, Blood 9.3 mg/dL (8.5-10.1); Creatinine, Blood 1.91 mg/dL (0.40-1.00); Globulin, Blood 5.8 g/dL (2.2-4.0); Magnesium, Blood 2.3 mg/dL (1.6-2.4); Percent Saturation 20.8 % (15.0-50.0); Potassium, Blood 5.1 mmol/L (3.5-5.5); Total Protein, Blood 8.4 g/dL (6.4-8.2)
[2024-11-28 07:23] VITALS: BP 128/63
[2024-11-28 15:41] VITALS: BP 125/81
--- NOTE | 2024-11-28 16:51 | NUR ---
Pt. is sitting up in a chair and welcomes my visit. Pt. is super pleasant and displays evidence of being encouraged with the progress in her post surgery time. Pt. displays evidence of a bouyant attitude and verbalized looking forward to getting on with the PT process when it is appropriate. Rapport is re-established and confirmed. Prayed with Pt. Pt. verbalized gratitude for the spiritual care visit and welcomed this surgical elastic knitter hand frame ot return.
--- NOTE | 2024-11-28 18:04 | NUR ---
PATIENT A/OX4, UP WITH FWW AND 1PA. NWB TO L FOOT, NEEDS REMINDERS TO BE COMPLIANT WIT THIS. POST OP SHOE IN PLACE TO PROTECT INCISION SITE. ACHS BLOOD SUGARS, COVERAGE PER SLIDING SCALE. VSS, ON RA. WORKED WITH PT THIS AM AND WAS UP IN CHAIR FOR MOST OF THE AFTERNOON. TOLERATING ADA DIET. PATIENT DENIES ANY PAIN OR DISCOMFORT. NO NEW CONCERNS THIS SHIFT.
[2024-11-28 19:54] VITALS: BP 138/78
[2024-11-29 04:24] VITALS: BP 118/61
[2024-11-29 05:08] LABS: BASOPHILS ABSOLUTE AUTO 0.05 K/mm3 (0.00-0.23); BASOPHILS PERCENT AUTO 0 % (0-2); EOSINOPHILS ABSOLUTE AUTO 0.17 K/mm3 (0.00-0.68); EOSINOPHILS PERCENT AUTO 2 % (0-6); Hematocrit 26.6 % (33.0-51.0); Hemoglobin 8.6 g/dL (11.5-16.0); IMMATURE GRAN ABSOLUTE AUTO 0.05 K/mm3 (0.00-0.10); IMMATURE GRAN PERCENT AUTO 0 % (0-1); LYMPHOCYTES ABSOLUTE AUTO 4.29 K/mm3 (0.84-5.20); LYMPHOCYTES PERCENT AUTO 38 % (21-46); MONOCYTES ABSOLUTE AUTO 0.72 K/mm3 (0.16-1.47); MONOCYTES PERCENT AUTO 6 % (4-13); Mean Corpuscular HGB 28.8 pg (26.0-34.0); Mean Corpuscular HGB Conc 32.3 g/dL (31.5-36.5); Mean Corpuscular Volume 89 fL (80-100); Mean Platelet Volume 8.8 fL (9.1-12.4); NEUTROPHILS PERCENT AUTO 53 % (41-73); Platelet Count 447 K/mm3 (150-400); RDW Coefficient Variation 14.6 % (11.7-14.2); RDW Standard Deviation 47.1 fL (35.1-46.3); Red Blood Cell Count 2.99 M/mm3 (3.80-5.20); White Blood Cell Count 11.28 K/mm3 (4.00-11.30)
[2024-11-29 05:20] LABS: Albumin, Blood 2.8 g/dL (3.4-5.0); Albumin/Globulin Ratio 0.5 (0.8-1.8); Bilirubin, Total 0.2 mg/dL (0.1-1.0); Calcium, Blood 9.3 mg/dL (8.5-10.1); Globulin, Blood 5.3 g/dL (2.2-4.0); Magnesium, Blood 2.3 mg/dL (1.6-2.4); Potassium, Blood 4.1 mmol/L (3.5-5.5); Total Protein, Blood 8.1 g/dL (6.4-8.2)
--- NOTE | 2024-11-29 05:37 | NUR ---
SHIFT SUMMARY PT SLEPT INTERMITTENTLY DURING THE NIGHT. C/O FEELING "MY NERVES ARE ON EDGE", ATARAX GIVEN WITH SOME RELIEF STATED. PT OOB TO BSC, NEEDS REMINDERS AND CUING TO BE NWB TO LLE. DRESSING REMAINS C/D/I. UNABLE TO KEEP POST-OP SHOE ON WHILE PT IN BED- FOOT OF BED LINED WITH PILLOWS TO PROTECT TOP OF FOOT FROM EDGE OF BED. IV INFILTRATED AT END OF LAST IV ANTIBIOTIC, UNABLE TO GET NEW IV IN DUE TO PAIN OUT OF PROPORTION AND PT YELLING. ANTIBIOTICS CHANGED TO PO FOR AM DOSES- CHARGE NURSE AWARE AND STATES OK TO LEAVE OUT TONIGHT UNTIL IT CAN BE CLARIFIED WITH ATTENDING. BED IN LOWEST POSITION, CALL LIGHT WITHIN REACH, SIDERAILS UP X2.
[2024-11-29 08:01] VITALS: BP 130/59
[2024-11-29] MEDS ORDERED: Trimethoprim/Sulfamethoxazole DS Tab PO SCH (09:00)
[2024-11-29] MEDS ORDERED: SEMGLEE (Y100 UNIT/2 SC (12:57)
[2024-11-29] MEDS ORDERED: JUVEN PACKET1 EAC3 PO (12:57)
[2024-11-29] MEDS ORDERED: Acetaminophen650 M1 PO (12:57)
[2024-11-29] MEDS ORDERED: VISBIOME 112.51 EACH PO (12:58)
[2024-11-29] MEDS ORDERED: DOXY100 PO (12:58)
--- NOTE | 2024-11-29 14:20 | NUR ---
Pt. is awake in bed and is full drssed awaiting for her ride to arrive prior to discharge. Failitated an update, and assesed the Pts. ability to stay on top of her therapy. Pt. displays evidence of being aware and engaged. With confendance this adjunct nursing faculty Prayed with the Pt. at bedside. Pt. verbalized gratitude for the several spiritual care visits.
--- NOTE | 2024-11-29 15:51 | NUR ---
DISCHARGED 1550, PATIENT STATED UNDERSTANDING OF MEDICATIONS, FOLLOW UPS, AND INSTRUCTIONS. PATIENT DENIED FURTHER QUESTIONS, [facility] TRANSPORTED PATIENT TO THE [facility]
== END 2024-11-29 15:57 | disposition home health service (06) | DRG 854 ==
LOC: ER 21:39 → MEDS 21:40 → ERHOLD 21:40 → MEDS 11-13 03:10 → PCU 11-22 14:13 → MEDS 11-23 10:14 → ENPENDDIS 11-29 13:47 → MEDS 11-29 15:57
PROVIDERS: Emergency Medicine; Family Medicine; Internal Medicine; Podiatrist Foot & Ankle Surgery; ADMIT Internal Medicine
PROC: 3E03329 Introduction of Other Anti-infective into Peripheral Vein, Percutaneous Approach (ICD-10-PCS; 2024-11-12)
PROC: 04FQ3ZZ Fragmentation of Left Anterior Tibial Artery, Percutaneous Approach (ICD-10-PCS; 2024-11-22)
PROC: B41F1ZZ Fluoroscopy of Right Lower Extremity Arteries using Low Osmolar Contrast (ICD-10-PCS; 2024-11-22)
PROC: 0Y6Q0Z0 Detachment at Left 1st Toe, Complete, Open Approach (ICD-10-PCS; principal; 2024-11-27 15:30)
DX: A41.02 Sepsis due to Methicillin resistant Staphylococcus aureus (principal); E11.52 Type 2 diabetes mellitus with diabetic peripheral angiopathy with gangrene; N17.9 Acute kidney failure, unspecified; L03.116 Cellulitis of left lower limb; Z59.00 Homelessness unspecified; N18.4 Chronic kidney disease, stage 4 (severe); M86.8X7 Other osteomyelitis, ankle and foot; E86.0 Dehydration; E11.69 Type 2 diabetes mellitus with other specified complication; R65.20 Severe sepsis without septic shock; E11.621 Type 2 diabetes mellitus with foot ulcer; L97.522 Non-pressure chronic ulcer of other part of left foot with fat layer exposed; E11.22 Type 2 diabetes mellitus with diabetic chronic kidney disease; D63.1 Anemia in chronic kidney disease; Z89.412 Acquired absence of left great toe; Z88.0 Allergy status to penicillin; Z86.19 Personal history of other infectious and parasitic diseases; Z79.82 Long term (current) use of aspirin; Z79.899 Other long term (current) drug therapy; Z79.4 Long term (current) use of insulin; Z91.148 Patient's other noncompliance with medication regimen for other reason
CPT/HCPCS: 36415; 73630; 75625; 75716; 75774; 76937; 80048; 80053; 80202; 81001; 82010; 82607; 82728; 82746; 82803; 82947; 83036; 83540; 83550; 83605; 83735; 85025; 87040; 87070; 87077; 87086; 87147; 87186; 87205; 87493; 88305; 88311; 90471; 90715; 93306; 93922; 93926; 94760; 96374; 96375; 96376; 97110; 97116; 97162; 97164; 97165; 97530; 99152; 99153; 99285-25; A9270; C1725; C1760; C1769; C1887; C1894; C9772; G0378; J0696; J1100; J1644; J1815; J2250; J2371; J2405; J2543; J2704; J2795; J3010; J3370; J7030; J7050; J7120; Q0177; Q9967

== ENCOUNTER 2024-12-28 20:03 | Emergency (ER) | payer MEDICARE ==
[~2024-12-28] VITALS: Ht 177.8 cm; Wt 83.9 kg
[~2024-12-28 20:03] MED LIST changes: +ASPIR 8181 M1 PO; +Acetaminophen650 M1 PO; +DOXY100 PO; +JUVEN PACKET1 EAC3 PO; +LISI5 PO; +MIRALAX17 GM PO; +MIRT15 PO; +PROBIOTIC1 EA13 PO; +ROSUVASTATIN CA20 MG PO; +SEMGLEE (Y100 UNIT/2 SC
[2024-12-28 21:58] LABS: BASOPHILS ABSOLUTE AUTO 0.06 K/mm3 (0.00-0.23); BASOPHILS PERCENT AUTO 1 % (0-2); EOSINOPHILS ABSOLUTE AUTO 0.31 K/mm3 (0.00-0.68); EOSINOPHILS PERCENT AUTO 3 % (0-6); Hematocrit 34.4 % (33.0-51.0); Hemoglobin 10.8 g/dL (11.5-16.0); IMMATURE GRAN ABSOLUTE AUTO 0.04 K/mm3 (0.00-0.10); IMMATURE GRAN PERCENT AUTO 0 % (0-1); LYMPHOCYTES ABSOLUTE AUTO 3.68 K/mm3 (0.84-5.20); LYMPHOCYTES PERCENT AUTO 33 % (21-46); MONOCYTES ABSOLUTE AUTO 0.71 K/mm3 (0.16-1.47); MONOCYTES PERCENT AUTO 6 % (4-13); Mean Corpuscular HGB Conc 31.4 g/dL (31.5-36.5); Mean Corpuscular Volume 93 fL (80-100); NEUTROPHILS ABSOLUTE AUTO 6.36 K/mm3 (1.96-9.15); NEUTROPHILS PERCENT AUTO 57 % (41-73); NRBC ABSOLUTE 0.00 K/mm3 (0.00-0.02); NRBC Auto 0.0 /100 WBC (0.0-0.2); Platelet Count 243 K/mm3 (150-400); RDW Coefficient Variation 13.9 % (11.7-14.2); RDW Standard Deviation 47.2 fL (35.1-46.3)
[2024-12-28 22:15] LABS: Alanine Aminotransfer (ALT/SGP 20.0 U/L (12-78); Albumin, Blood 3.1 g/dL (3.4-5.0); Albumin/Globulin Ratio 0.6 (0.8-1.8); Anion Gap 7.0 mmol/L (3-11); Aspartate Aminotrans (AST/SGOT 16.0 U/L (12-37); Bilirubin, Total 0.3 mg/dL (0.1-1.0); Blood Urea Nitrogen 35.0 mg/dL (8-24); CO2, Blood 27.0 mmol/L (21-32); Calcium, Blood 9.1 mg/dL (8.5-10.1); Chloride, Blood 104.0 mmol/L (98-108); Creatinine, Blood 2.03 mg/dL (0.40-1.00); Globulin, Blood 5.1 g/dL (2.2-4.0); Glucose, Blood 114.0 mg/dL (70-99); Potassium, Blood 3.8 mmol/L (3.5-5.5); Sodium, Blood 134.0 mmol/L (136-145); Total Protein, Blood 8.2 g/dL (6.4-8.2)
[2024-12-29] MEDS ORDERED: BACTRIM DS TAB1 EAC1 PO (00:41)
[2024-12-29] MEDS ORDERED: Trimethoprim/Sulfamethoxazole DS Tab PO ONE (00:45)
== END 2024-12-29 01:16 | disposition home or self-care (01) ==
LOC: ER 20:03
PROVIDERS: Student in an Organized Health Care Education/Training Program
DX: L03.116 Cellulitis of left lower limb (principal); E11.22 Type 2 diabetes mellitus with diabetic chronic kidney disease; N18.4 Chronic kidney disease, stage 4 (severe); Z89.412 Acquired absence of left great toe; Z79.4 Long term (current) use of insulin; Z79.899 Other long term (current) drug therapy; Z88.0 Allergy status to penicillin
CPT/HCPCS: 36415; 80053; 85025; 99283; A9270

== ENCOUNTER 2025-02-20 17:56 | Emergency (ER) | payer MEDICARE ==
[~2025-02-20] VITALS: Ht 177.8 cm; Wt 70.8 kg
[~2025-02-20 17:56] MED LIST changes: +ASPI325EC PO; -ASPIR 8181 M1 PO; +BACTRIM DS TAB1 EAC1 PO; -SEMGLEE (Y100 UNIT/2 SC
[2025-02-20 18:30] LABS: BASOPHILS ABSOLUTE AUTO 0.05 K/mm3 (0.00-0.23); BASOPHILS PERCENT AUTO 1 % (0-2); EOSINOPHILS ABSOLUTE AUTO 0.16 K/mm3 (0.00-0.68); EOSINOPHILS PERCENT AUTO 2 % (0-6); Hematocrit 37.6 % (33.0-51.0); Hemoglobin 12.2 g/dL (11.5-16.0); IMMATURE GRAN ABSOLUTE AUTO 0.03 K/mm3 (0.00-0.10); IMMATURE GRAN PERCENT AUTO 0 % (0-1); LYMPHOCYTES ABSOLUTE AUTO 4.58 K/mm3 (0.84-5.20); LYMPHOCYTES PERCENT AUTO 44 % (21-46); MONOCYTES ABSOLUTE AUTO 0.67 K/mm3 (0.16-1.47); MONOCYTES PERCENT AUTO 7 % (4-13); Mean Corpuscular HGB Conc 32.4 g/dL (31.5-36.5); Mean Corpuscular Volume 88 fL (80-100); NEUTROPHILS ABSOLUTE AUTO 4.89 K/mm3 (1.96-9.15); NEUTROPHILS PERCENT AUTO 47 % (41-73); NRBC ABSOLUTE 0.00 K/mm3 (0.00-0.02); NRBC Auto 0.0 /100 WBC (0.0-0.2); Platelet Count 224 K/mm3 (150-400); RDW Coefficient Variation 13.8 % (11.7-14.2); RDW Standard Deviation 44.3 fL (35.1-46.3)
[2025-02-20 19:10] LABS: Alanine Aminotransfer (ALT/SGP 15.0 U/L (12-78); Albumin, Blood 3.6 g/dL (3.4-5.0); Albumin/Globulin Ratio 0.9 (0.8-1.8); Anion Gap 8.0 mmol/L (3-11); Aspartate Aminotrans (AST/SGOT 16.0 U/L (12-37); Bilirubin, Total 0.1 mg/dL (0.1-1.0); Blood Urea Nitrogen 30.0 mg/dL (8-24); CO2, Blood 31.0 mmol/L (21-32); Calcium, Blood 9.2 mg/dL (8.5-10.1); Chloride, Blood 99.0 mmol/L (98-108); Creatinine, Blood 2.36 mg/dL (0.40-1.00); Globulin, Blood 4.2 g/dL (2.2-4.0); Glucose, Blood 152.0 mg/dL (70-99); Potassium, Blood 3.6 mmol/L (3.5-5.5); Sodium, Blood 134.0 mmol/L (136-145); Total Protein, Blood 7.8 g/dL (6.4-8.2)
[2025-02-20 19:54] LABS: Source, Urine Clean Catch
[2025-02-20 19:57] LABS: Bilirubin, Urine Neg (Neg); Color, Urine Yellow (P-Yellow); Glucose Qualitative, Urine 1+ (Neg); Ketones, Urine Neg (Neg); Leukocyte Esterase, Urine 3+ (Neg); Protein, Urine 2+ (Neg); Specific Gravity, Urine 1.010 (1.003-1.022); Urobilinogen, Urine NORM (Normal)
[2025-02-20 20:10] LABS: Red Blood Cells, Urine 0-2 /hpf (0-2)
[2025-02-20] MEDS ORDERED: NS 1,000 ML IV SCH (21:35)
[2025-03-11] MEDS ORDERED: MONDOXYNE NL100 MG PO (18:15)
[2025-03-11] MEDS ORDERED: SEMGLEE (Y100 UNIT/2 SC (18:17)
[2025-03-18] MEDS ORDERED: Doxycycline Mo100 M1 PO (12:49)
[2025-03-18] MEDS ORDERED: ACET500 PO (12:51)
[2025-03-18] MEDS ORDERED: ELIQUIS5 M2 PO (12:52)
[2025-03-18] MEDS ORDERED: ATOR40TA PO (12:53)
== END 2025-02-20 23:33 | disposition home or self-care (01) ==
LOC: ER 17:56
PROVIDERS: Student in an Organized Health Care Education/Training Program
DX: R55 Syncope and collapse (principal); R42 Dizziness and giddiness; E11.22 Type 2 diabetes mellitus with diabetic chronic kidney disease; E11.621 Type 2 diabetes mellitus with foot ulcer; L97.529 Non-pressure chronic ulcer of other part of left foot with unspecified severity; N18.4 Chronic kidney disease, stage 4 (severe); Z79.899 Other long term (current) drug therapy; Z79.82 Long term (current) use of aspirin; Z88.0 Allergy status to penicillin
CPT/HCPCS: 71046; 71260; 73630; 80053; 80320; 81001; 83690; 83880; 84484; 85025; 85379; 87086; 93005; 93010; 96360-59; 99284-25; J7030; Q9967

== ENCOUNTER 2025-03-22 13:41 | Emergency (ER) | payer MEDICARE ==
[~2025-03-22] VITALS: Ht 177.8 cm; Wt 69.4 kg
[~2025-03-22 13:41] MED LIST changes: +ACET500 PO; +ATOR40TA PO; +Doxycycline Mo100 M1 PO; +ELIQUIS5 M2 PO; +MONDOXYNE NL100 MG PO; +SEMGLEE (Y100 UNIT/2 SC
[2025-03-22] MEDS ORDERED: NS 1,000 ML IV SCH (13:55)
[2025-03-22 15:42] LABS: BASOPHILS ABSOLUTE AUTO 0.05 K/mm3 (0.00-0.23); BASOPHILS PERCENT AUTO 1 % (0-2); EOSINOPHILS ABSOLUTE AUTO 0.13 K/mm3 (0.00-0.68); EOSINOPHILS PERCENT AUTO 1 % (0-6); Hematocrit 33.3 % (33.0-51.0); Hemoglobin 10.8 g/dL (11.5-16.0); IMMATURE GRAN ABSOLUTE AUTO 0.06 K/mm3 (0.00-0.10); IMMATURE GRAN PERCENT AUTO 1 % (0-1); LYMPHOCYTES ABSOLUTE AUTO 1.71 K/mm3 (0.84-5.20); LYMPHOCYTES PERCENT AUTO 16 % (21-46); MONOCYTES ABSOLUTE AUTO 0.64 K/mm3 (0.16-1.47); MONOCYTES PERCENT AUTO 6 % (4-13); Mean Corpuscular HGB Conc 32.4 g/dL (31.5-36.5); Mean Corpuscular Volume 86 fL (80-100); NEUTROPHILS ABSOLUTE AUTO 8.41 K/mm3 (1.96-9.15); NEUTROPHILS PERCENT AUTO 77 % (41-73); NRBC ABSOLUTE 0.00 K/mm3 (0.00-0.02); NRBC Auto 0.0 /100 WBC (0.0-0.2); Platelet Count 314 K/mm3 (150-400); RDW Coefficient Variation 14.5 % (11.7-14.2); RDW Standard Deviation 45.0 fL (35.1-46.3)
[2025-03-22 15:54] LABS: Anion Gap 9.0 mmol/L (3-11); Blood Urea Nitrogen 48.0 mg/dL (8-24); CO2, Blood 27.0 mmol/L (21-32); Calcium, Blood 9.1 mg/dL (8.5-10.1); Chloride, Blood 101.0 mmol/L (98-108); Creatinine, Blood 2.21 mg/dL (0.40-1.00); Glucose, Blood 232.0 mg/dL (70-99); Magnesium, Blood 2.4 mg/dL (1.6-2.4); Potassium, Blood 4.0 mmol/L (3.5-5.5); Sodium, Blood 133.0 mmol/L (136-145)
[2025-03-22] MEDS ORDERED: DOXY100 PO (18:26)
[2025-03-22] MEDS ORDERED: AMOCLA875 PO (18:26)
[2025-03-22] MEDS ORDERED: LEVOFLOXACIN250 M9 PO (18:42)
== END 2025-03-22 19:21 | disposition home or self-care (01) ==
LOC: ER 13:41
PROVIDERS: Emergency Medicine
DX: R55 Syncope and collapse (principal); J18.0 Bronchopneumonia, unspecified organism; E11.22 Type 2 diabetes mellitus with diabetic chronic kidney disease; N18.4 Chronic kidney disease, stage 4 (severe); Z79.82 Long term (current) use of aspirin; Z79.4 Long term (current) use of insulin; Z88.0 Allergy status to penicillin; Z79.899 Other long term (current) drug therapy
CPT/HCPCS: 71045; 71260; 80048; 83735; 85025; 85379; 93005; 93010; 96360-59; 99285-25; A9270; J7030; Q9967

== ENCOUNTER 2025-04-09 17:57 | Emergency (ER) | payer MEDICARE ==
[~2025-04-09] VITALS: Ht 177.8 cm; Wt 69.4 kg
[~2025-04-09 17:57] MED LIST changes: +AMOCLA875 PO; +LEVOFLOXACIN250 M9 PO
[2025-04-09 19:45] LABS: BASOPHILS ABSOLUTE AUTO 0.05 K/mm3 (0.00-0.23); BASOPHILS PERCENT AUTO 0 % (0-2); EOSINOPHILS ABSOLUTE AUTO 0.16 K/mm3 (0.00-0.68); EOSINOPHILS PERCENT AUTO 1 % (0-6); Hematocrit 36.6 % (33.0-51.0); Hemoglobin 12.1 g/dL (11.5-16.0); IMMATURE GRAN ABSOLUTE AUTO 0.04 K/mm3 (0.00-0.10); IMMATURE GRAN PERCENT AUTO 0 % (0-1); LYMPHOCYTES ABSOLUTE AUTO 3.26 K/mm3 (0.84-5.20); LYMPHOCYTES PERCENT AUTO 29 % (21-46); MONOCYTES ABSOLUTE AUTO 0.60 K/mm3 (0.16-1.47); MONOCYTES PERCENT AUTO 5 % (4-13); Mean Corpuscular HGB Conc 33.1 g/dL (31.5-36.5); Mean Corpuscular Volume 85 fL (80-100); NEUTROPHILS ABSOLUTE AUTO 7.09 K/mm3 (1.96-9.15); NEUTROPHILS PERCENT AUTO 63 % (41-73); NRBC ABSOLUTE 0.00 K/mm3 (0.00-0.02); NRBC Auto 0.0 /100 WBC (0.0-0.2); Platelet Count 238 K/mm3 (150-400); RDW Coefficient Variation 14.7 % (11.7-14.2); RDW Standard Deviation 45.1 fL (35.1-46.3)
[2025-04-09 19:47] LABS: Alanine Aminotransfer (ALT/SGP 27.0 U/L (12-78); Albumin, Blood 3.7 g/dL (3.4-5.0); Albumin/Globulin Ratio 0.8 (0.8-1.8); Anion Gap 12.0 mmol/L (3-11); Aspartate Aminotrans (AST/SGOT 15.0 U/L (12-37); Bilirubin, Total 0.4 mg/dL (0.1-1.0); Blood Urea Nitrogen 40.0 mg/dL (8-24); CO2, Blood 24.0 mmol/L (21-32); Calcium, Blood 10.3 mg/dL (8.5-10.1); Chloride, Blood 99.0 mmol/L (98-108); Creatinine, Blood 2.04 mg/dL (0.40-1.00); Globulin, Blood 4.5 g/dL (2.2-4.0); Glucose, Blood 359.0 mg/dL (70-99); Potassium, Blood 4.2 mmol/L (3.5-5.5); Sodium, Blood 131.0 mmol/L (136-145); Total Protein, Blood 8.2 g/dL (6.4-8.2)
[2025-04-09] MEDS ORDERED: HYDROCHLOROTH12.5 MG PO (22:16)
[2025-04-10] MEDS ORDERED: BISA10S PR (19:44)
[2025-04-10] MEDS ORDERED: ONDA4ODT MM (21:12)
== END 2025-04-09 22:34 | disposition home or self-care (01) ==
LOC: ER 17:57
PROVIDERS: Student in an Organized Health Care Education/Training Program
DX: I16.0 Hypertensive urgency (principal); R42 Dizziness and giddiness; I12.9 Hypertensive chronic kidney disease with stage 1 through stage 4 chronic kidney disease, or unspecified chronic kidney disease; E11.22 Type 2 diabetes mellitus with diabetic chronic kidney disease; N18.4 Chronic kidney disease, stage 4 (severe); Z88.0 Allergy status to penicillin; Z79.4 Long term (current) use of insulin; Z79.82 Long term (current) use of aspirin; Z79.01 Long term (current) use of anticoagulants; Z79.899 Other long term (current) drug therapy
CPT/HCPCS: 70450; 71046; 80053; 83690; 84484; 85025; 93005; 93010; 99285-25; A9270

== ENCOUNTER 2025-04-10 12:09 | Emergency (ER) | payer MEDICARE ==
[~2025-04-10] VITALS: Ht 177.8 cm; Wt 69.4 kg
[~2025-04-10 12:09] MED LIST changes: +HYDROCHLOROTH12.5 MG PO
[2025-04-10 12:55] LABS: BASOPHILS ABSOLUTE AUTO 0.02 K/mm3 (0.00-0.23); BASOPHILS PERCENT AUTO 0 % (0-2); EOSINOPHILS ABSOLUTE AUTO 0.09 K/mm3 (0.00-0.68); EOSINOPHILS PERCENT AUTO 1 % (0-6); Hematocrit 41.1 % (33.0-51.0); Hemoglobin 13.5 g/dL (11.5-16.0); IMMATURE GRAN ABSOLUTE AUTO 0.04 K/mm3 (0.00-0.10); IMMATURE GRAN PERCENT AUTO 0 % (0-1); LYMPHOCYTES ABSOLUTE AUTO 1.06 K/mm3 (0.84-5.20); LYMPHOCYTES PERCENT AUTO 10 % (21-46); MONOCYTES ABSOLUTE AUTO 0.42 K/mm3 (0.16-1.47); MONOCYTES PERCENT AUTO 4 % (4-13); Mean Corpuscular HGB Conc 32.8 g/dL (31.5-36.5); Mean Corpuscular Volume 84 fL (80-100); NEUTROPHILS ABSOLUTE AUTO 8.90 K/mm3 (1.96-9.15); NEUTROPHILS PERCENT AUTO 84 % (41-73); NRBC ABSOLUTE 0.00 K/mm3 (0.00-0.02); NRBC Auto 0.0 /100 WBC (0.0-0.2); Platelet Count 261 K/mm3 (150-400); RDW Coefficient Variation 14.7 % (11.7-14.2); RDW Standard Deviation 44.4 fL (35.1-46.3)
[2025-04-10 12:58] LABS: pH Blood Venous 7.46 (7.34-7.37)
[2025-04-10] MEDS ORDERED: Ondansetron HCl 2 MG / ML 2ML Vial IV ONE (13:10)
[2025-04-10 13:33] LABS: Alanine Aminotransfer (ALT/SGP 28.0 U/L (12-78); Albumin, Blood 4.3 g/dL (3.4-5.0); Albumin/Globulin Ratio 0.9 (0.8-1.8); Anion Gap 11.0 mmol/L (3-11); Aspartate Aminotrans (AST/SGOT 17.0 U/L (12-37); Bilirubin, Total 0.6 mg/dL (0.1-1.0); Blood Urea Nitrogen 36.0 mg/dL (8-24); CO2, Blood 27.0 mmol/L (21-32); Calcium, Blood 10.3 mg/dL (8.5-10.1); Chloride, Blood 96.0 mmol/L (98-108); Creatinine, Blood 1.71 mg/dL (0.40-1.00); Globulin, Blood 4.8 g/dL (2.2-4.0); Glucose, Blood 391.0 mg/dL (70-99); Potassium, Blood 3.6 mmol/L (3.5-5.5); Sodium, Blood 130.0 mmol/L (136-145); Total Protein, Blood 9.1 g/dL (6.4-8.2)
[2025-04-10] MEDS ORDERED: DiphenhydrAMINE HCl 50 MG/ML 1ML Vial IV ONE (15:20)
[2025-04-10] MEDS ORDERED: Metoclopramide HCl 5MG / ML 2ML Vial IV ONE (15:20)
[2025-04-10 16:03] LABS: Influenza A, PCR NEGATIVE (NEGATIVE); Influenza B, PCR NEGATIVE (NEGATIVE); Resp Syncytial Virus, PCR NEGATIVE (NEGATIVE); SARS-Cov-2 (COVID-19) PCR, MMC NEGATIVE (NEGATIVE)
[2025-04-10 16:36] LABS: Source, Urine Clean Catch
[2025-04-10 16:42] LABS: Bilirubin, Urine Neg (Neg); Glucose Qualitative, Urine 4+ (Neg); Ketones, Urine Neg (Neg); Leukocyte Esterase, Urine Neg (Neg); Protein, Urine 2+ (Neg); Specific Gravity, Urine 1.010 (1.003-1.022); Urobilinogen, Urine NORM (Normal)
[2025-04-10 16:50] LABS: Color, Urine Pale Yellow (P-Yellow)
[2025-04-10 16:51] LABS: White Blood Cells, Urine 0-2 /hpf (0-5)
[2025-04-10] MEDS ORDERED: BISA10S PR (19:44)
[2025-04-10] MEDS ORDERED: Insulin Glargine-Yfgn 100 Unit/mL 3 ML SYR SC ONE (19:45)
[2025-04-10] MEDS ORDERED: Insulin Glargine 100 Unit/ML 3 ML SYR SC ONE (20:25)
[2025-04-10] MEDS ORDERED: ONDA4ODT MM (21:12)
[2025-04-10] MEDS ORDERED: RX Prepack 2 Tabs Ondansetron ODT 4MG UD ONE (21:15)
== END 2025-04-10 22:12 | disposition home or self-care (01) ==
LOC: ER 12:09
PROVIDERS: Student in an Organized Health Care Education/Training Program
DX: R33.9 Retention of urine, unspecified (principal); E11.22 Type 2 diabetes mellitus with diabetic chronic kidney disease; N18.4 Chronic kidney disease, stage 4 (severe); Z79.82 Long term (current) use of aspirin; Z79.4 Long term (current) use of insulin; Z88.0 Allergy status to penicillin; Z79.899 Other long term (current) drug therapy
CPT/HCPCS: 74177; 80053; 81001; 82803; 83690; 85025; 87637; 93005; 93010; 96361; 96374-59; 96375; 99285-25; A9270; J1200; J1815; J2405; J2765; J7120; Q9967

== ENCOUNTER 2025-04-14 14:43 | Inpatient (IN) | payer MEDICARE ==
[~2025-04-14] VITALS: Ht 177.8 cm; Wt 65.4 kg
[~2025-04-14 14:43] MED LIST changes: +BISA10S PR
[2025-04-14] MEDS ORDERED: NS 1,000 ML IV SCH ×3 (14:50→17:20)
[2025-04-14 15:09] LABS: pH Blood Venous 7.42 (7.34-7.37)
[2025-04-14 15:14] LABS: BASOPHILS ABSOLUTE AUTO 0.02 K/mm3 (0.00-0.23); BASOPHILS PERCENT AUTO 0 % (0-2); EOSINOPHILS ABSOLUTE AUTO 0.02 K/mm3 (0.00-0.68); EOSINOPHILS PERCENT AUTO 0 % (0-6); Hematocrit 38.6 % (33.0-51.0); Hemoglobin 13.0 g/dL (11.5-16.0); IMMATURE GRAN ABSOLUTE AUTO 0.05 K/mm3 (0.00-0.10); IMMATURE GRAN PERCENT AUTO 0 % (0-1); LYMPHOCYTES ABSOLUTE AUTO 2.28 K/mm3 (0.84-5.20); LYMPHOCYTES PERCENT AUTO 15 % (21-46); MONOCYTES ABSOLUTE AUTO 0.95 K/mm3 (0.16-1.47); MONOCYTES PERCENT AUTO 6 % (4-13); Mean Corpuscular HGB Conc 33.7 g/dL (31.5-36.5); Mean Corpuscular Volume 85 fL (80-100); NEUTROPHILS ABSOLUTE AUTO 12.30 K/mm3 (1.96-9.15); NEUTROPHILS PERCENT AUTO 79 % (41-73); NRBC ABSOLUTE 0.00 K/mm3 (0.00-0.02); NRBC Auto 0.0 /100 WBC (0.0-0.2); Platelet Count 265 K/mm3 (150-400); RDW Coefficient Variation 14.6 % (11.7-14.2); RDW Standard Deviation 44.6 fL (35.1-46.3)
[2025-04-14 15:28] LABS: Source, Urine Clean Catch
[2025-04-14 15:50] LABS: Alanine Aminotransfer (ALT/SGP 17.0 U/L (12-78); Albumin, Blood 3.0 g/dL (3.4-5.0); Albumin/Globulin Ratio 0.6 (0.8-1.8); Anion Gap 14.0 mmol/L (3-11); Aspartate Aminotrans (AST/SGOT 16.0 U/L (12-37); Bilirubin, Total 0.6 mg/dL (0.1-1.0); Blood Urea Nitrogen 81.0 mg/dL (8-24); CO2, Blood 26.0 mmol/L (21-32); Calcium, Blood 9.5 mg/dL (8.5-10.1); Chloride, Blood 89.0 mmol/L (98-108); Creatinine, Blood 2.05 mg/dL (0.40-1.00); Globulin, Blood 4.8 g/dL (2.2-4.0); Glucose, Blood 528.0 mg/dL (70-99); Potassium, Blood 3.5 mmol/L (3.5-5.5); Sodium, Blood 125.0 mmol/L (136-145); Total Protein, Blood 7.8 g/dL (6.4-8.2)
[2025-04-14 15:52] LABS: Bilirubin, Urine Neg (Neg); Glucose Qualitative, Urine 4+ (Neg); Ketones, Urine 1+ (Neg); Leukocyte Esterase, Urine 3+ (Neg); Protein, Urine 2+ (Neg); Specific Gravity, Urine 1.010 (1.003-1.022); Urobilinogen, Urine NORM (Normal)
[2025-04-14 16:02] LABS: Color, Urine Pale Yellow (P-Yellow)
[2025-04-14 16:03] LABS: White Blood Cells, Urine 25-50 /hpf (0-5); Yeast/Fungi Urine Few /hpf
[2025-04-14] MEDS ORDERED: CefTRIAXone Sodium 1,000 MG in NS 100 ML IV ONE (16:15)
[2025-04-14] MEDS ORDERED: Ondansetron HCl 2 MG / ML 2ML Vial IV PRN (17:25)
[2025-04-14] MEDS ORDERED: HydrALAZINE HCl 20 MG / ML 1ML Vial IV PRN (17:40)
[2025-04-14] MEDS ORDERED: FLU VACC TS2025(65UP)/MF59C/PF 45 MCG/0.5 ML SYRINGE IM SCH (17:50)
[2025-04-14] MEDS ORDERED: Insulin Regular 100 UNIT/ML 10ML Vial SC SCH (18:00)
[2025-04-14 18:32] VITALS: BP 154/93
[2025-04-14 20:24] VITALS: BP 140/73
[2025-04-14] MEDS ORDERED: Lactobacil 2-S.Thermo-Bifido 1 1 Cap PO SCH (21:00)
[2025-04-14] MEDS ORDERED: Naloxone HCl 0.4MG / ML 1ML Vial IV PRN (21:55)
[2025-04-14] MEDS ORDERED: Morphine Sulfate 4 MG/1 ML Injection IV PRN (21:55)
[2025-04-15] VITALS (7 sets, daily range): BP systolic 133–167; BP diastolic 70–86
[2025-04-15] MEDS ORDERED: Pantoprazole Sodium 40 MG Injection IV SCH (06:00)
[2025-04-15 06:05] LABS: BASOPHILS ABSOLUTE AUTO 0.03 K/mm3 (0.00-0.23); BASOPHILS PERCENT AUTO 0 % (0-2); EOSINOPHILS ABSOLUTE AUTO 0.13 K/mm3 (0.00-0.68); EOSINOPHILS PERCENT AUTO 1 % (0-6); Hematocrit 40.6 % (33.0-51.0); Hemoglobin 13.2 g/dL (11.5-16.0); IMMATURE GRAN ABSOLUTE AUTO 0.06 K/mm3 (0.00-0.10); IMMATURE GRAN PERCENT AUTO 0 % (0-1); LYMPHOCYTES ABSOLUTE AUTO 4.12 K/mm3 (0.84-5.20); LYMPHOCYTES PERCENT AUTO 27 % (21-46); MONOCYTES ABSOLUTE AUTO 1.20 K/mm3 (0.16-1.47); MONOCYTES PERCENT AUTO 8 % (4-13); Mean Corpuscular HGB Conc 32.5 g/dL (31.5-36.5); Mean Corpuscular Volume 86 fL (80-100); NEUTROPHILS ABSOLUTE AUTO 9.88 K/mm3 (1.96-9.15); NEUTROPHILS PERCENT AUTO 64 % (41-73); NRBC ABSOLUTE 0.00 K/mm3 (0.00-0.02); NRBC Auto 0.0 /100 WBC (0.0-0.2); Platelet Count 269 K/mm3 (150-400); RDW Coefficient Variation 14.6 % (11.7-14.2); RDW Standard Deviation 45.7 fL (35.1-46.3)
[2025-04-15 06:34] LABS: Anion Gap 10.0 mmol/L (3-11); Blood Urea Nitrogen 65.0 mg/dL (8-24); CO2, Blood 26.0 mmol/L (21-32); Calcium, Blood 9.6 mg/dL (8.5-10.1); Chloride, Blood 104.0 mmol/L (98-108); Creatinine, Blood 1.77 mg/dL (0.40-1.00); Glucose, Blood 75.0 mg/dL (70-99); Potassium, Blood 3.2 mmol/L (3.5-5.5); Sodium, Blood 137.0 mmol/L (136-145)
--- NOTE | 2025-04-15 08:11 | NUR ---
SHIFT SUMMARY: PT IS A&OX4. VSS ON RA. SR 70'S-80'S. PT C/O OF A OCAMPO, PAIN TO HER BACK AND ABD. KPAD APPLIED TO PT. MEDICATED PER EMAR WITH PRN, 1MG IV MORPHINE. PT REMAINS NPO, BUT FREQUENTLY ASKING FOR FOOD AND SOMETHING TO DRINK. REMINDED PT MULTIPLE TIMES TO WHY SHE WAS NPO. Q2 BLOOD SUGARS MAINTAINED. NOOB THIS SHIFT. PT IS FREQUENTLY REPOSITIONING HERSELF IN THE BED. SPRAGUE CATHETER PATENT, DRAINING TO GRAVITY, STAT LOCK IN PLACE. SPRAGUE CATHETER DRAINING LARGE AMOUNTS OF YELLOW URINE. NO BM THIS SHIFT, BRIEF IN PLACE. TOOK SOME PICTURES OF PT'S BACK D/T SMALL BLISTER LIKE AREA TO HER RIGHT SIDE LOW BACK. 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 SEE PICTURES IN CHART. BED IN LOWEST POSITION, CALL LIGHT WITHIN REACH. CALLS APPROPRIATELY AND IS ABLE TO ADVOCATE NEEDS EFFECTIVELY. CONTACT PRECAUTIONS MAINTAINED FOR MRSA IN THE WOUND.
[2025-04-15] MEDS ORDERED: Potassium Chl 20MEQ/Water100ML 100 ML IV SCH (10:40)
[2025-04-15] MEDS ORDERED: CefTRIAXone Sodium 1,000 MG in NS 100 ML IV SCH (12:00)
[2025-04-15] MEDS ORDERED: Potassium Chl 10MEQ/Water100ML 100 ML IV ONE (13:00)
[2025-04-15] MEDS ORDERED: Insulin Regular 100 UNIT/ML 10ML Vial SC SCH (16:30)
--- NOTE | 2025-04-15 17:49 | NUR ---
SHIFT SUMMARY; ASSUMED CARE AT 0700. A/A/OX3 DURING SHIFT. ANSWERS MEDICAL HX QUESTIONS AT TIMES, AT OTHER TIMES STATES JUST CAN'T REMEMBER. VSS, CHRONIC SPRAGUE IN PLACE DRAINING CLEAR URINE TO GRAVITY. DIET ADVANCED TO CLEARS, TOLERATED WELL, NO EMESIS DURING SHIFT. MOVES SELF ON BED, ABLE TO MAKE NEEDS KNOWN. EVALUATED TODAY BY DR. BINGHAM FOR EGD. LAST BLOOD THINNER TAKEN BY PT AT HOME YESTERDAY MORNING, WILL NEED TO WAIT FOR EGD PER DR. BINGHAM. WILL CONTINUE TO MONITOR AND TREAT UNTIL REPORT GIVEN TO LAMINE SHIFT RN.
[2025-04-16 04:15] VITALS: BP 159/63
--- NOTE | 2025-04-16 04:38 | NUR ---
SHIFT SUMMARY A&O x4, FORGETFUL, POOR HISTORIAN, FOLLOWS COMMANDS. O2 SAT >96% ON RA. MAP >65, HR NSR 70s. TOLERATING CLEAR LIQUID DIET, DENIES N/V. PT REQUIRED NO INSULIN COVERAGE THIS SHIFT. SPRAGUE DRAINING LIGHT YELLOW URINE TO GAVITY. PASSING FLATUS. NO BM OVERNIGHT. PT REPOSITIONS IND IN BED, NO AMB OVERNIGHT. ANTICIPATED EGD 10.23. CALL LIGHT IN REACH, PT RESTING IN BED, WILL REPORT TO DAY RN.
[2025-04-16 07:18] LABS: BASOPHILS ABSOLUTE AUTO 0.02 K/mm3 (0.00-0.23); BASOPHILS PERCENT AUTO 0 % (0-2); EOSINOPHILS ABSOLUTE AUTO 0.25 K/mm3 (0.00-0.68); EOSINOPHILS PERCENT AUTO 3 % (0-6); Hematocrit 30.5 % (33.0-51.0); Hemoglobin 10.0 g/dL (11.5-16.0); IMMATURE GRAN ABSOLUTE AUTO 0.05 K/mm3 (0.00-0.10); IMMATURE GRAN PERCENT AUTO 1 % (0-1); LYMPHOCYTES ABSOLUTE AUTO 3.31 K/mm3 (0.84-5.20); LYMPHOCYTES PERCENT AUTO 35 % (21-46); MONOCYTES ABSOLUTE AUTO 0.84 K/mm3 (0.16-1.47); MONOCYTES PERCENT AUTO 9 % (4-13); Mean Corpuscular HGB Conc 32.8 g/dL (31.5-36.5); Mean Corpuscular Volume 85 fL (80-100); NEUTROPHILS ABSOLUTE AUTO 4.95 K/mm3 (1.96-9.15); NEUTROPHILS PERCENT AUTO 53 % (41-73); NRBC ABSOLUTE 0.00 K/mm3 (0.00-0.02); NRBC Auto 0.0 /100 WBC (0.0-0.2); Platelet Count 201 K/mm3 (150-400); RDW Coefficient Variation 14.6 % (11.7-14.2); RDW Standard Deviation 45.4 fL (35.1-46.3)
[2025-04-16 07:29] LABS: Anion Gap 10.0 mmol/L (3-11); Blood Urea Nitrogen 39.0 mg/dL (8-24); CO2, Blood 23.0 mmol/L (21-32); Calcium, Blood 8.2 mg/dL (8.5-10.1); Chloride, Blood 108.0 mmol/L (98-108); Creatinine, Blood 1.64 mg/dL (0.40-1.00); Glucose, Blood 128.0 mg/dL (70-99); Potassium, Blood 3.4 mmol/L (3.5-5.5); Sodium, Blood 138.0 mmol/L (136-145)
[2025-04-16 08:02] VITALS: BP 158/77
--- NOTE | 2025-04-16 10:42 | NUR ---
Upon receiving a referral for spiritual care, I visited the patient. She tells me about her medical history and about her hopes to discharge from the hospital soon. She tells me that she has no family in the area and that she has been living at [facility] for the last few yrs. She hopes to be able to live on her own but finances continue to be an issue for her. I provided therapeutic listening and prayer. The patient responded well and showed signs of an elevated mood.
--- NOTE | 2025-04-16 16:40 | NUR ---
PT TRANSITIONED TO MEDICAL STATUS NO TELE. VITALS HRR SR 70-80'S, SBP 150'S, SATS ABOVE 95% ON RA, AFEBRILE. PT HAS 10/10 PAIN ALL OVER IV MORPHINE GIVEN X1 WITH RELIEF. DR EVERETT ROUNDED ON PT ADDRESSED INDWELLING SPRAGUE D/T RETENTION, ORDERED TO DC SPRAGUE AND BLADDER SCAN NEEDED AND POST VOID TO MONITOR RETENTION. CATHETER WAS PULLED AT 1300 PT ABLE TO VOID 100 MLS AT 1500 BLADDER SCAN SHOWED >400MLS URINE RETAINED, ORDER RECEIVED TO PERFORM STRAIGHT CATH PER POLICY. PT HAD ABOUT 500MLS URINE OUT. NO OTHER ISSUES REPORTED PT WAS ACCOMPANIED VIA [email or web address] FOR TRANSPORT ALL BELONGINGS SENT WITH THE PT. REPORT GIVEN TO HAMLET BUENROSTRO
--- NOTE | 2025-04-16 17:05 | NUR ---
Patient transfer from PCU at 1600 and assumed care of patient. Oriented to room and call system; bed placed in lowest position and call light within reach. Patient denies SOB, CP or pressure, N/V/D or pain at this time. Patient will be NPO after midnight for EGD tomorrow. All medications administered per EMAR. Will continue to monitor until next shift nurse arrives and report is given.
[2025-04-16 19:34] VITALS: BP 167/88
[2025-04-17] VITALS (13 sets, daily range): BP systolic 127–198; BP diastolic 69–96
[2025-04-17 04:47] LABS: BASOPHILS ABSOLUTE AUTO 0.02 K/mm3 (0.00-0.23); BASOPHILS PERCENT AUTO 0 % (0-2); EOSINOPHILS ABSOLUTE AUTO 0.25 K/mm3 (0.00-0.68); EOSINOPHILS PERCENT AUTO 3 % (0-6); Hematocrit 32.1 % (33.0-51.0); Hemoglobin 10.5 g/dL (11.5-16.0); IMMATURE GRAN ABSOLUTE AUTO 0.05 K/mm3 (0.00-0.10); IMMATURE GRAN PERCENT AUTO 1 % (0-1); LYMPHOCYTES ABSOLUTE AUTO 2.51 K/mm3 (0.84-5.20); LYMPHOCYTES PERCENT AUTO 34 % (21-46); MONOCYTES ABSOLUTE AUTO 0.71 K/mm3 (0.16-1.47); MONOCYTES PERCENT AUTO 10 % (4-13); Mean Corpuscular HGB Conc 32.7 g/dL (31.5-36.5); Mean Corpuscular Volume 86 fL (80-100); NEUTROPHILS ABSOLUTE AUTO 3.78 K/mm3 (1.96-9.15); NEUTROPHILS PERCENT AUTO 52 % (41-73); NRBC ABSOLUTE 0.00 K/mm3 (0.00-0.02); NRBC Auto 0.0 /100 WBC (0.0-0.2); Platelet Count 220 K/mm3 (150-400); RDW Coefficient Variation 14.6 % (11.7-14.2); RDW Standard Deviation 45.8 fL (35.1-46.3)
[2025-04-17 05:21] LABS: Alanine Aminotransfer (ALT/SGP 13.0 U/L (12-78); Albumin, Blood 2.5 g/dL (3.4-5.0); Albumin/Globulin Ratio 0.7 (0.8-1.8); Anion Gap 10.0 mmol/L (3-11); Aspartate Aminotrans (AST/SGOT 11.0 U/L (12-37); Bilirubin, Total 0.5 mg/dL (0.1-1.0); Blood Urea Nitrogen 33.0 mg/dL (8-24); CO2, Blood 23.0 mmol/L (21-32); Calcium, Blood 8.5 mg/dL (8.5-10.1); Chloride, Blood 106.0 mmol/L (98-108); Creatinine, Blood 1.53 mg/dL (0.40-1.00); Globulin, Blood 3.6 g/dL (2.2-4.0); Glucose, Blood 186.0 mg/dL (70-99); Magnesium, Blood 1.8 mg/dL (1.6-2.4); Potassium, Blood 3.6 mmol/L (3.5-5.5); Sodium, Blood 135.0 mmol/L (136-145); Total Protein, Blood 6.1 g/dL (6.4-8.2)
--- NOTE | 2025-04-17 05:42 | NUR ---
SHIFT SUMMARY PT ALERT ORIENTED ABLE TO VERBALIZE NEEDS GETS UP TO THE BEDSIDE COMMODE WITH SBA. SHES BEEN URINATING WELL THIS SHIFT. SHES BEEN NPO SINCE MIDNIGHT FOR A EGD TODAY. REMAINS ON ROCEPHIN ORDERED FOR UTI. FS DONE AC AND HS WAS 205. NO C/O PAIN THIS SHIFT. 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 BP WAS SLIGHTLY HIGH THIS SHIFT AT 167/88. ALL OTHER VSS. REMAINS ON NS AT 125. RESTING IN BED AT THIS TIME WITH CALL LIGHT IN REACH
[2025-04-17] MEDS ORDERED: FentaNYL Citrate 50 MCG/ML 2 ML Injection ONE (15:08)
--- NOTE | 2025-04-17 15:21 | NUR ---
1500: Pt brought from Medical Floor to Day Surgery for procedure w/Dr. Morton. BP 198/96, HR 80s, O2 sats 100% on RA. Dr. Frankel w/ anesthesia at bedside, aware of HTN, no new orders. Pt reports 8/10 pain to abd, arm and head. Pain medication given by Dr. Frankel. See anesthesia notes. 1515: BP down to 127/90, pt reports pain is improving, appears more relaxed.
--- NOTE | 2025-04-17 15:33 | NUR ---
04/17/[address] SEE ANESTHESIA RECORDS.
[2025-04-17] MEDS ORDERED: Fluconazole 400MG/Iso-Sod 200M 200 ML IV ONE (16:05)
[2025-04-17] MEDS ORDERED: Nystatin 100,000 Unit/ML Susp 5 ML UDC MT SCH (17:00)
--- NOTE | 2025-04-17 17:31 | NUR ---
End of shift summary: Patient is alert and oriented x4 with some forgetfulness noted at times; pleasant and cooperative with care but can become tearful at times. All medications administered per EMAR. Patient with EGD completed today and post-op vitals being completed. Patient denies SOB, CP, N/V/D today, but has mild pain at times and repostions frequently. Patient has continued to have incontinent episodes today requiring linen changes. Patient utilizing call light appropriately; call light within reach and bed in lowest position. Will continue to monitor until next shift nurse arrives and report is given.
[2025-04-18 03:56] VITALS: BP 133/79
[2025-04-18 07:36] VITALS: BP 162/71
[2025-04-18] MEDS ORDERED: Polyethylene Glycol 3350 17 gm PO SCH (12:00)
[2025-04-18] MEDS ORDERED: Docusate Sodium/Senna 1 Tab PO PRN (14:00)
[2025-04-18] MEDS ORDERED: Docusate Sodium/Senna 1 Tab PO ONE (14:00)
[2025-04-18] MEDS ORDERED: Insulin Glargine 100 Unit/ML 3 ML SYR SC SCH (14:00)
--- NOTE | 2025-04-18 16:02 | NUR ---
SHIFT SUMMARY A/Ox4, ABLE TO MAKE NEEDS KNOWN AND USES CALL SYSTEM APPROPRIATELY. TREATED FOR PAIN PER EMAR. URINE RETENTION - STRAIGHT CATHETER COMPLETED WITH AN OUPTUT OF 700 ML. BLADDER ULTRASOUND COMPLETED PRIOR TO STRAIGHT CATH. NEXT BLADDER SCAN DUE [address] TO STRAIGHT CATH PT FOR RESULTS OVER 500 ML AND TO LEAVE IN CATHETER ON 3RD INSERTION. DIGITAL DISIMPACTION COMPLETED FOR IMPACTION @ RECTUM. BOWEL CARE STARTED. PT CURRENTLY RESTING IN BED, VERY TIRED FROM LONG DAY PER PT. BED IN LOWEST POSITION AND CALL LIGHT IN REACH.
[2025-04-18 17:47] VITALS: BP 160/83
--- NOTE | 2025-04-18 19:34 | NUR ---
ASSUMPTION OF CARE: THIS RN ASSUMED CARE OF PATIENT. AWAKE DURING SHIFT CHANGE REPORT. SITTING UP IN BED c HOB ELEVATED. BREATHING EVEN AND UNLABORED c ROOM AIR. BED IN LOWEST POSITION. CALL LIGHT WITHIN REACH. ACUTE NEEDS MET.
[2025-04-18 20:05] VITALS: BP 131/56
[2025-04-19 04:42] LABS: BASOPHILS ABSOLUTE AUTO 0.02 K/mm3 (0.00-0.23); BASOPHILS PERCENT AUTO 0 % (0-2); EOSINOPHILS ABSOLUTE AUTO 0.18 K/mm3 (0.00-0.68); EOSINOPHILS PERCENT AUTO 2 % (0-6); Hematocrit 31.3 % (33.0-51.0); Hemoglobin 10.3 g/dL (11.5-16.0); IMMATURE GRAN ABSOLUTE AUTO 0.07 K/mm3 (0.00-0.10); IMMATURE GRAN PERCENT AUTO 1 % (0-1); LYMPHOCYTES ABSOLUTE AUTO 2.93 K/mm3 (0.84-5.20); LYMPHOCYTES PERCENT AUTO 37 % (21-46); MONOCYTES ABSOLUTE AUTO 0.75 K/mm3 (0.16-1.47); MONOCYTES PERCENT AUTO 10 % (4-13); Mean Corpuscular HGB Conc 32.9 g/dL (31.5-36.5); Mean Corpuscular Volume 85 fL (80-100); NEUTROPHILS ABSOLUTE AUTO 3.95 K/mm3 (1.96-9.15); NEUTROPHILS PERCENT AUTO 50 % (41-73); NRBC ABSOLUTE 0.00 K/mm3 (0.00-0.02); NRBC Auto 0.0 /100 WBC (0.0-0.2); Platelet Count 238 K/mm3 (150-400); RDW Coefficient Variation 14.6 % (11.7-14.2); RDW Standard Deviation 44.8 fL (35.1-46.3)
[2025-04-19 06:03] LABS: Alanine Aminotransfer (ALT/SGP 13.0 U/L (12-78); Albumin, Blood 2.5 g/dL (3.4-5.0); Albumin/Globulin Ratio 0.7 (0.8-1.8); Anion Gap 9.0 mmol/L (3-11); Aspartate Aminotrans (AST/SGOT 12.0 U/L (12-37); Bilirubin, Total 0.2 mg/dL (0.1-1.0); Blood Urea Nitrogen 22.0 mg/dL (8-24); CO2, Blood 25.0 mmol/L (21-32); Calcium, Blood 8.8 mg/dL (8.5-10.1); Chloride, Blood 106.0 mmol/L (98-108); Creatinine, Blood 1.55 mg/dL (0.40-1.00); Globulin, Blood 3.6 g/dL (2.2-4.0); Glucose, Blood 209.0 mg/dL (70-99); Potassium, Blood 3.7 mmol/L (3.5-5.5); Sodium, Blood 136.0 mmol/L (136-145); Total Protein, Blood 6.1 g/dL (6.4-8.2)
--- NOTE | 2025-04-19 07:49 | NUR ---
END OF SHIFT SUMMARY: A&Ox3-4. PLEASANT AND COOPERATIVE WITH CARE. CALLS APPROPRIATELY AND IS ABLE TO ADVOCATE NEEDS EFFECTIVELY. VSS. BREATHING EVEN AND UNLABORED c RA. CONTINENT OF BOWEL AND BLADDER; BUT PREFERS TO UTILIZE BRIEFS/ATTENDS SECONDARY TO FATIGUE AND DECONDITIONING. LBM 04/18/25, THOUGH SMALL; BOWEL CARE PROVIDED. TOLERATING DIET. 1-2PA c FWW, THOUGH WEAK AND UNPREDICTABLE ON FEET. MEDS WHOLE c FLUIDS. BLADDER SCAN YIELDED > 700mL c STRAIGHT CATH RESULTING IN 850mL URINE. NS HELD D/T FINE BIBASILAR CRACKLES AND HAVING HAD 7L FLUID IN LAST THREE DAYS. LABS DONE THIS MORNING; Na WNL. BED IN LOWEST POSITION, CALL LIGHT WITHIN REACH, ALL NEEDS MET. REPORT TO ONCOMING NURSE.
[2025-04-19 08:07] VITALS: BP 151/86
[2025-04-19] MEDS ORDERED: NS 250 ML IV PRN (08:20)
[2025-04-19 16:12] VITALS: BP 154/80
[2025-04-19] MEDS ORDERED: Insulin Human Lispro 100 Units/ML 3ML Syringe SC SCH (16:30)
--- NOTE | 2025-04-19 17:46 | NUR ---
SHIFT SUMMARY PT AOX3-4, COOPERATIVE, ABLE TO MAKE NEEDS KNOWN. PT HAS NOT BEEN OOB FOR DURATION OF SHIFT. IN ISO FOR HX OF MRSA IN . ON ROOM AIR, TOLERATING MEDICATIONS. PT DOES URINATE A LITTLE AT A TIME, BUT UPON BLADDER SCAN, POST VOID WAS >800, INSERTED SPRAGUE CATHETER FOR RETENTION. PT CONCERNED ABOUT DC'ING CATHETER. SUPPOSED TO DC TO SNF EVENTUALLY. BED IN LOWEST POSITION, CALL LIGHT [facility].
[2025-04-19 19:51] VITALS: BP 154/81
[2025-04-19] MEDS ORDERED: Saline Nasal Spray 45 ML PRN (20:10)
[2025-04-19] MEDS ORDERED: Insulin Glargine 100 Unit/ML 3 ML SYR SC ONE (21:00)
[2025-04-20 04:45] VITALS: BP 146/70
[2025-04-20 07:48] VITALS: BP 170/81
[2025-04-20] MEDS ORDERED: Insulin Glargine 100 Unit/ML 3 ML SYR SC SCH (09:00)
[2025-04-20 09:27] VITALS: BP 145/66
[2025-04-20 10:44] VITALS: BP 120/64
[2025-04-20] MEDS ORDERED: Calcium Carbon500 MG PO (15:30)
[2025-04-20] MEDS ORDERED: FLUC200 PO (15:31)
[2025-04-20] MEDS ORDERED: DOCUZEN 8.6-501 EACH PO (15:31)
[2025-04-20] MEDS ORDERED: HUMALOG JU100 UNIT/2 (15:31)
[2025-04-20] MEDS ORDERED: NYSTATIN100000 U10 MT (15:32)
[2025-04-20] MEDS ORDERED: MIRALAX11910 PO (15:32)
[2025-04-20] MEDS ORDERED: OMEP20ER PO (15:33)
--- NOTE | 2025-04-20 17:45 | NUR ---
SHIFT SUMMARY/DISCHARGE PT AOX3-4, COOPERATIVE, ABLE TO MAKE NEEDS KNOWN. PT EMOTIONALLY LABILE. TRANSPORTED BY TO [facility]. TOLERATED MEDICATIONS. REPORT GIVEN TO "JANETT BUENROSTRO". TRANSFERRED TO VIA 2 PERSON ASSIST, FWW, [facility]ITBELT. PAPERWORK WENT WITH TRANSPORT.
== END 2025-04-20 17:35 | DRG 698 ==
LOC: ER 14:43 → MEDS 17:18 → PCU 17:18 → MEDS 04-16 16:07 → ENPENDDIS 04-20 14:58 → MEDS 04-20 17:35
PROVIDERS: Emergency Medicine; Internal Medicine; Surgery; ADMIT Family Medicine
PROC: 3E03329 Introduction of Other Anti-infective into Peripheral Vein, Percutaneous Approach (ICD-10-PCS; 2025-04-15)
PROC: 0DB48ZX Excision of Esophagogastric Junction, Via Natural or Artificial Opening Endoscopic, Diagnostic (ICD-10-PCS; principal; 2025-04-17 13:30)
DX: T83.511A Infection and inflammatory reaction due to indwelling urethral catheter, initial encounter (principal); A41.9 Sepsis, unspecified organism; E11.10 Type 2 diabetes mellitus with ketoacidosis without coma; E43 Unspecified severe protein-calorie malnutrition; N17.9 Acute kidney failure, unspecified; N18.4 Chronic kidney disease, stage 4 (severe); I13.0 Hypertensive heart and chronic kidney disease with heart failure and stage 1 through stage 4 chronic kidney disease, or unspecified chronic kidney disease; I50.32 Chronic diastolic (congestive) heart failure; K92.0 Hematemesis; B37.81 Candidal esophagitis; N39.0 Urinary tract infection, site not specified; F41.9 Anxiety disorder, unspecified; F32.A Depression, unspecified; M54.50 Low back pain, unspecified; G89.29 Other chronic pain; E11.22 Type 2 diabetes mellitus with diabetic chronic kidney disease; E78.5 Hyperlipidemia, unspecified; E11.51 Type 2 diabetes mellitus with diabetic peripheral angiopathy without gangrene; Z79.4 Long term (current) use of insulin; Z79.01 Long term (current) use of anticoagulants; Z79.82 Long term (current) use of aspirin; Z79.899 Other long term (current) drug therapy; Z85.72 Personal history of non-Hodgkin lymphomas; Z90.710 Acquired absence of both cervix and uterus; Z89.421 Acquired absence of other right toe(s); Z87.891 Personal history of nicotine dependence; Z88.0 Allergy status to penicillin
CPT/HCPCS: 36415; 76770; 80048; 80053; 81001; 82010; 82803; 82947; 83036; 83605; 83735; 85025; 87040; 87086; 88305; 88312; 93005; 93010; 96360; 97110; 97140; 97162; 97166; 97535; 99285-25; A9270; J0360; J0696; J1450; J1815; J2270; J2405; J2470; J2704; J3010; J3480; J7030; J7050; J7120

== ENCOUNTER → 2025-05-21 | Outpatient (CLI) | payer MEDICARE ==
[~2025-05-21] MED LIST changes: +Calcium Carbon500 MG PO; +DOCUZEN 8.6-501 EACH PO; +FLUC200 PO; +HUMALOG JU100 UNIT/2; +MIRALAX11910 PO; +NYSTATIN100000 U10 MT; +OMEP20ER PO
== END ==
LOC: LAB SHORT 17:02 → LAB 17:02
DX: R82.998 Other abnormal findings in urine (principal)
CPT/HCPCS: 87077; 87086; 87186

== ENCOUNTER 2025-06-04 09:21 | Emergency (ER) | payer MEDICARE ==
[~2025-06-04] VITALS: Ht 177.8 cm; Wt 77.1 kg
[2025-06-04] MEDS ORDERED: HYDROcodone 5-APAP 325 TAB PO ONE (09:50)
[2025-06-04] MEDS ORDERED: ONDA4ODT MM (11:44)
== END 2025-06-04 15:35 | disposition home or self-care (01) ==
LOC: ER 09:21
DX: S00.81XA Abrasion of other part of head, initial encounter (principal); I12.9 Hypertensive chronic kidney disease with stage 1 through stage 4 chronic kidney disease, or unspecified chronic kidney disease; E11.22 Type 2 diabetes mellitus with diabetic chronic kidney disease; N18.4 Chronic kidney disease, stage 4 (severe); Z88.0 Allergy status to penicillin; Z79.01 Long term (current) use of anticoagulants; Z79.4 Long term (current) use of insulin; Z79.899 Other long term (current) drug therapy; W18.30XA Fall on same level, unspecified, initial encounter
CPT/HCPCS: 70450; 90471; 90715; 99284-25; A9270